=== PATIENT | male | born 1960 | race Caucasian/White ===

== ENCOUNTER 2016-04-27 06:37 | Day surgery (SDC) | payer OTHER ==
[~2016-04-27] VITALS: Ht 165.1 cm; Wt 63.5 kg
[~2016-04-27 06:37] MED LIST: GABA-526 PO; METF-382 PO
[2016-04-27 07:29] VITALS: Ht 165.1 cm; Wt 63.5 kg
[2016-04-27] MEDS ORDERED: GAS RELIEF PO (07:38)
[2016-04-27 07:59] VITALS: BP 116/72; PULSE 75; RESP 18
[2016-04-27 09:11] VITALS: BP 111/69; PULSE 83; RESP 18
--- NOTE | 2016-04-27 12:15 | GILP ---
DATE OF PROCEDURE: PROCEDURE: Esophagogastroduodenoscopy with biopsy. INDICATION: A 55-year-old male undergoing this procedure for a progressive dysphagia. The purpose is to evaluate upper GI tract and find out the cause of his dysphagia. The risk of the procedure, r elated and unrelated complications, anesthetic risks, sedative risks, alternatives discussed and inf ormed consent was obtained. DESCRIPTION OF PROCEDURE: The patient was brought to the GI lab, sedated with Versed 3 mg, fentanyl 75 mg. After optimum sedation, scope was passed with much ease into the esophagus which was grossl y within normal limits. No stricture, no ulcer or tumor identified. Z-line was normal at 40 cm. T here was no evidence of achalasia. Stomach mucosa revealed gastritis, more pronounced in the antrum . Duodenum, first and second part including ampulla, was within normal limits. Retroversion also w as normal. Scope was straightened out, and after obtaining 4 biopsies, removed with excellent patie nt tolerance. IMPRESSION: 1. Normal esophagus. 2. Normal Z-line. 3. Gastritis. 4. Normal duodenum and ampulla. PLAN: Review histopathology. Will do thyroid function for his dysphagia and also patient may need esophagogram to make sure there is no ring which we are missing or early achalasia. Dictated By: DOREEN COOPER/SHALONDA Conf#: [id number] DID#: [id number] CC: MALCOLM GREER MD;*EndCC*
[2016-04-27] MEDS ORDERED: MIDAZOLAM 1 MG/ML 2 ML INJ ONE ×2 (15:15)
[2016-04-27] MEDS ORDERED: FENTAnyl 50 MCG/ML VIAL ONE (15:16)
== END 2016-04-27 11:32 | disposition home or self-care (01) ==
LOC: GIL 06:37
PROVIDERS: ATTEND Internal Medicine Gastroenterology
DX: K29.50 Unspecified chronic gastritis without bleeding (principal); E11.9 Type 2 diabetes mellitus without complications
CPT/HCPCS: 43239; 82962; 88305; 88312; J2250; J3010; Z7610

== ENCOUNTER 2016-08-19 13:48 | Inpatient (IN) | payer OTHER ==
[~2016-08-19] VITALS: Ht 165.1 cm; Wt 61.9 kg
[~2016-08-19 13:48] MED LIST changes: +GAS RELIEF PO; -METF-382 PO; +METF500T4 PO
[2016-08-19] MEDS ORDERED: ONDANSETRON 4 MG INJ IV STA (16:49)
[2016-08-19] MEDS ORDERED: SOD CHLORIDE 0.9% 1,000 ML IV STA ×3 (16:49→20:25)
[2016-08-19] MEDS ORDERED: morphine 4 MG/ML VIAL IV STA (16:49)
--- NOTE | 2016-08-19 17:00 | ERA ---
ER Documentation Chief Complaint Date/Time DATE: 08/19/16 TIME: 16:57 Chief Complaint JAUNDICE/ABD PAIN/N/V/WEAKNESS/LOST OF APPETITE/WT LOST 8LBS IN 1 MNTH HPI This is a very pleasant 55-year-old male that presents to the emergency department complaining of 2 months of persistent and worsening jaundice. The patient indicates he had a remote history of ethanol abuse but has been abstinent from alcohol for over one year. He indicates he has been seen and evaluated for the jaundice with blood work, upper endoscopy and was currently awaiting further test. However he presents to the emergency department today as he indicates he has had lower abdominal pain over the past 4 days that has progressively worsened. The pain does not radiate to the back. He states it is a persistent sharp shooting pain in the left and the right lower quadrant. He denies any frequency urgency or dysuria. He has had no hemoptysis hematemesis but does state he has had melanotic stools for the past 2 months. He had no fevers or shaking or chills. He indicates he said a significant amount of weight loss of roughly 8 pounds in 1 month. He is unable to tolerate oral intake as he has no appetite. He denies any recent travel or prolonged immobilization. He has no shortness of breath at rest or exertion. ROS All systems reviewed and are negative except as per history of present illness. Medications Home Meds Reported Medications Polyethylene Glycol* (Miralax*) 17 Gm Powd.pack, 17 GM PO DAILY, #30 PACKET 08/19/16 Tramadol HCl (Tramadol HCl) 50 Mg Tablet, 50 MG PO TID for PAIN, #60 TAB 08/19/16 Meloxicam* (Meloxicam*) 7.5 Mg Tablet, 7.5 MG PO DAILY, #30 TAB 08/19/16 Ibuprofen* (Ibuprofen*) 600 Mg Tablet, 600 MG PO BID, TAB 08/19/16 Omeprazole* (Omeprazole*) 20 Mg Capsule.dr, 20 MG PO DAILY, #30 CAP 08/19/16 [Gas Relief] No Conflict Check, PO DAILY for DISTENSION/GAS/BLOATING 04/27/16 Metformin Hcl* (Metformin Hcl*) 500 Mg Tablet, 500 MG PO WITH BREAKFAST, TAB 02/24/14 Gabapentin* (Gabapentin*) 600 Mg Tablet, 600 MG PO TID, TAB 02/24/14 Allergies Allergies: Coded Allergies: No Known Allergies (Unverified Allergy, Unknown, 04/27/16) PMhx/Soc History of Surgery: Yes (HERNIA) Anesthesia Reaction: No Hx Neurological Disorder: Yes (DIABETIC NEUROPATHY BUE/BLE) Hx Respiratory Disorders: No Hx Cardiac Disorders: No Hx Psychiatric Problems: No Hx Miscellaneous Medical Probl: No Hx Alcohol Use: Yes (OCCASIONALLY) Hx Substance Use: No Hx Tobacco Use: No Smoking Status: Never smoker Physical Exam Vitals Vital Signs Date Time Temp Pulse Resp B/P Pulse Ox O2 Delivery O2 Flow Rate FiO2 08/19/16 18:24 Nasal Cannula 2 08/19/16 17:35 98.1 80 18 110/68 99 Room Air 08/19/16 15:35 98.1 80 18 101/65 99 Room Air 08/19/16 13:58 97.8 96 22 89/60 98 Physical Exam Constitutional:Well-developed. Well-nourished. HEENT:Normocephalic. Atraumatic.Pupils were equal round reactive to light. Moist mucous membranes.No tonsillar exudates. Sclerae icterus. Neck: No nuchal rigidity. No lymphadenopathy. No posterior cervical spine tenderness or step-offs. Respiratory: Not using accessory muscles of respiration.Lungs were clear to auscultation bilaterally. No rhonchi. No rales. No wheezing. Cardiovascular: Regular rate regular rhythm.No murmurs. No rubs were appreciated.S1, S2 normal. Distal pulses are palpable 2+ bilaterally. GI: Abdomen was soft. Hepatomegaly. Bilateral tenderness in the left and right lower quadrant. Non Distended. No pulsatile abdominal masses or bruits. No rebound. No guarding. Bowel sounds were present and normal. Muscle skeletal: Full range of motion of both the upper and lower extremities bilaterally.Normal muscle tone.No assymetrical calf tenderness or swelling. Skin: Jaundice. No petechia, no purpura. No lesions on the palms or the soles of the feet. No maculopapular rash. NEURO: Patient was alert, awake, orientated x3.No facial droop. Gait observed and normal with no ataxia.Speech had regular rate and rhythm. No focal neurological deficits. Result Diagram: 08/19/16 1700 08/19/16 1700 Results 24 hrs Laboratory Tests Test 08/19/16 17:00 08/19/16 17:15 08/19/16 18:50 White Blood Count 5.310^3/ul Red Blood Count 4.6010^6/ul Hemoglobin 16.2g/dl Hematocrit 43.8% Mean Corpuscular Volume 95.2fl Mean Corpuscular Hemoglobin 35.2pg Mean Corpuscular Hemoglobin Concent 37.0g/dl Red Cell Distribution Width 17.2% Platelet Count 5910^3/UL Mean Platelet Volume 11.5fl Neutrophils % 81.0% Lymphocytes % 12.0% Monocytes % 7.0% Neutrophils # 4.310^3/ul Lymphocytes # 0.610^3/ul Monocytes # 0.410^3/ul Platelet Estimate PLT APPEAR Sodium Level 137mmol/L Potassium Level 4.4mmol/L Chloride Level 99mmol/L Carbon Dioxide Level 23mmol/L Anion Gap 19 Blood Urea Nitrogen 17mg/dl Creatinine 0.96mg/dl Glucose Level 208mg/dl Calcium Level 9.0mg/dl Total Bilirubin 19.0mg/dl Direct Bilirubin 13.70mg/dl Indirect Bilirubin 5.3mg/dl Aspartate Amino Transf (AST/SGOT) 671IU/L Alanine Aminotransferase (ALT/SGPT) 686IU/L Alkaline Phosphatase 233IU/L Troponin I < 0.012ng/ml Total Protein 7.5g/dl Albumin 3.3g/dl Globulin 4.20g/dl Albumin/Globulin Ratio 0.78 Amylase Level 63U/L Lipase 193U/L Prothrombin Time 31.8Sec Prothrombin Time Ratio 2.5 INR International Normalized Ratio 3.03 Activated Partial Thromboplast Time 42.8Sec Urine Color JONE Urine Clarity SLIGHTLY CLOUDY Urine pH 6.0 Urine Specific Derwent 1.043 Urine Ketones NEGATIVEmg/dL Urine Nitrite NEGATIVEmg/dL Urine Bilirubin 2+mg/dL Urine Urobilinogen 2+mg/dL Urine Leukocyte Esterase NEGATIVELeu/ul Urine Microscopic RBC 0/HPF Urine Microscopic WBC 6/HPF Urine Mucus FEW/HPF Urine Hemoglobin NEGATIVEmg/dL Urine Glucose 2+mg/dL Urine Total Protein NEGATIVEmg/dl Current Medications Medications (Trade) Dose Ordered Sig/Pillo Route PRN Reason Start Time Stop Time Status Last Admin Dose Admin Sodium Chloride (NS) 1,000 ml @ 1,000 mls/hr Q1H STAT IV 08/19/16 16:49 7/15/17 17:48 DC 08/19/16 17:37 Morphine Sulfate (morphine) 4 mg ONCE STAT IV 08/19/16 16:49 08/19/16 16:52 DC 08/19/16 17:36 Ondansetron HCl (Zofran Inj) 4 mg ONCE STAT IV 08/19/16 16:49 08/19/16 16:52 DC 08/19/16 17:37 IV Flush 10 ml 10 ml STK-MED ONCE .ROUTE 08/19/16 17:34 08/19/16 17:35 DC 08/19/16 17:49 Sodium Chloride (NS) 100 ml @ ud STK-MED ONCE .ROUTE 08/19/16 17:34 08/19/16 17:35 DC 08/19/16 17:49 Iohexol 150 ml 150 ml STK-MED ONCE .ROUTE 08/19/16 17:34 08/19/16 17:35 DC 08/19/16 17:50 Sodium Chloride 1,000 ml @ 1,000 mls/hr Q1H STAT IV 08/19/16 19:36 08/19/16 20:35 DC 08/19/16 20:38 Sodium Chloride (NS) 1,000 ml @ 1,000 mls/hr Q1H STAT IV 08/19/16 20:25 08/19/16 21:24 DC 08/19/16 21:17 Procedures/MDM This patient presented to the emergency department with abdominal pain and was seen and evaluated by myself. My differential diagnosis included but was not limited to abdominal aortic aneurysm, appendicitis, pancreatitis, perforated peptic ulcer, perforated viscus, Boerhaaves syndrome or visceral pain such as diverticulitis, DKA, esophagitis, hepatitis or bowel obstruction. The patient was placed on a patient monitor, continuous pulse oximetry, and IV access was established by nursing staff. Patient was hypotensive and was given a liter bolus of 0 point and normal saline. For analgesic control the patient was given intravenous morphine and Zofran. I obtained a CT scan of the patient's abdomen which indicated the followin. Cirrhotic liver. 2. Splenomegaly. 3. Portal hypertension with varices in the upper abdomen. 4. Atherosclerosis. 5. Portal colopathy. 6. Moderate ascites. 7. Degenerative changes of the lower lumbar spine. As obtained an ultrasound the gallbladder which showed no common bile duct dilatation. 1 view chest radiograph showed no evidence of infiltrates pneumothorax or pleural effusion. The patient had hyperglycemia without ketosis and was given IV fluids. The patient had transaminitis, and elevation of his direct and indirect bilirubin with an elevation of AST. I do not have an exact etiology into the patient's hyperbilirubinemia but there was concern for portal hypertension and cirrhosis. The patient also had a urinary tract infection and blood cultures and urine cultures were obtained. Given his multiple comorbidities he will be admitted for IV antibiotics and received IV ceftriaxone in the emergency department. He will be admitted under the care of Dr. Mckoy in serious condition with an anticipated stay of greater than 2 midnights to the medical surgical floor Departure Diagnosis: Primary Impression: Urinary tract infection Qualified Code: N39.0 - Urinary tract infection without hematuria, site unspecified Additional Impressions: Hyperbilirubinemia Transaminitis Portal hypertension Condition: Serious ARELY GUERRA Aug 19, 2016 17:00
[2016-08-19 17:03] LABS: ADD SCAN DIFF NO
[2016-08-19 17:14] LABS: ABNORMAL IP MESSAGE 1; HEMATOCRIT 43.8 % (42.0-52.0); HEMOGLOBIN 16.2 g/dl (14.0-18.0); MEAN CORPUSCULAR HEMOGLOBIN 35.2 pg (29.0-33.0); MEAN CORPUSCULAR VOLUME 95.2 fl (82.0-101.0); MEAN PLATELET VOLUME 11.5 fl (7.4-10.4); PLATELET COUNT 59 10^3/UL (140-415); RED CELL DISTRIBUTION WIDTH 17.2 % (11.5-14.5); WHITE BLOOD COUNT 5.3 10^3/ul (4.8-10.8)
[2016-08-19 17:22] LABS: ALANINE AMINOTRANSFERASE 686 IU/L (13-69); ALBUMIN 3.3 g/dl (3.3-4.9); ALBUMIN/GLOBULIN RATIO 0.78; ALKALINE PHOSPHATASE 233 IU/L (42-121); AMYLASE 63 U/L (11-123); ANION GAP 19 (8-16); ASPARTATE AMINO TRANSFERASE 671 IU/L (15-46); BILIRUBIN,INDIRECT 5.3 mg/dl (0-1.1); BLOOD UREA NITROGEN 17 mg/dl (7-20); CARBON DIOXIDE 23 mmol/L (21-31); CHLORIDE 99 mmol/L (97-110); CREATININE 0.96 mg/dl (0.61-1.24); GLUCOSE 208 mg/dl (70-220); POTASSIUM 4.4 mmol/L (3.5-5.1); SODIUM 137 mmol/L (135-144); TOTAL PROTEIN 7.5 g/dl (6.1-8.1)
[2016-08-19] MEDS ORDERED: SOD CHLORIDE 0.9% 100 ML ONE (17:34)
[2016-08-19] MEDS ORDERED: IOHEXOL 300MG/ML 150 ML BTL ONE (17:34)
[2016-08-19 17:35] VITALS: TEMP 98.1
[2016-08-19 17:41] LABS: TROPONIN-I < 0.012 ng/ml (0.00-0.12)
[2016-08-19 17:43] LABS: INR 3.03; PROTIME 31.8 Sec (12.2-14.2); PT RATIO 2.5
[2016-08-19 17:44] LABS: PARTIAL THROMBOPLASTIN TIME 42.8 Sec (25.0-35.0)
[2016-08-19 17:46] LABS: LYMPHOCYTES # 0.6 10^3/ul (0.8-2.9); MONOCYTE # 0.4 10^3/ul (0.3-0.9); NEUTROPHIL # 4.3 10^3/ul (1.6-7.5)
[2016-08-19 17:48] LABS: PLATELET ESTIMATE PLT APPEAR
--- NOTE | 2016-08-19 18:25 | RADRPT ---
PROCEDURE: CT Abdomen and Pelvis with contrast. CLINICAL INDICATION: Abdomen and pelvis pain. Jaundice. TECHNIQUE: CT scan of the abdomen and pelvis with contrast was performed. The patient was scanned following the uncomplicated intravenous administration of 100 cc of Omnipaque-300. Coronal and sag ittal reformatted images were obtained from the axial source images. Images were reviewed on a high- resolution PACS workstation. Total exam DLP is 309.66 mGy-cm. CTDIvol is 5.17 mGy. One or more of the following dose reduction techniques were used: Automated exposure control, adjustment of the mA and/or kV according to patient size, use of iterative reconstruction technique. COMPARISON: None. FINDINGS: The lung bases are normal. There is no pleural effusion. The liver is small and has a nodular surface consistent with cirrhosis. There is no focal hepatic l esion. The gallbladder is distended but otherwise unremarkable. The spleen is borderline enlarged. There is no focal splenic lesion. Multiple dilated veins are pre sent in the upper abdomen consistent with varices. Both adrenals are normal with no enlargement or mass. The pancreas is unremarkable with no mass or evidence of pancreatitis. Both kidneys demonstrate normal contrast enhancement. There is no renal mass or hydronephrosis. The abdominal aorta is not dilated. There is calcification in the aorta consistent with atheroscler osis. There is no retroperitoneal lymphadenopathy or mass. There is no pelvic lymphadenopathy or mass. The bladder and distal ureters are normal. The periappendiceal region is unremarkable with no evidence of appendicitis. The appendix is well s een and appears normal. There is diffuse thickening of the wall of the colon consistent with portal colopathy. The bowel an d mesentery are otherwise normal. There is moderate ascites. There is no free air. There are degenerative changes of the lower lumbar spine. There is no fracture or lytic lesion. IMPRESSION: 1. Cirrhotic liver. 2. Splenomegaly. 3. Portal hypertension with varices in the upper abdomen. 4. Atherosclerosis. 5. Portal colopathy. 6. Moderate ascites. 7. Degenerative changes of the lower lumbar spine. RPTAT: QQ .Jefferson Solis MD, MD Date Time Electronically viewed and signed by .Jefferson Solis MD, on 08/19/2016 18:24 .R/
--- NOTE | 2016-08-19 18:26 | RADRPT ---
PROCEDURE: XR Chest. CLINICAL INDICATION: Abdominal pain. TECHNIQUE: Single frontal view. COMPARISON: 07/28/2015. FINDINGS: The lungs are clear. The heart size is normal. There is no pleural effusion. There is no pneumothorax. IMPRESSION: 1. Normal chest radiograph. RPTAT: QQ .Jefferson Solis MD, MD Date Time Electronically viewed and signed by .Jefferson Solis MD, on 08/19/2016 18:25 .R/
--- NOTE | 2016-08-19 18:44 | RADRPT ---
PROCEDURE: Right upper quadrant abdominal ultrasound. CLINICAL INDICATION: Abdominal pain, jaundice TECHNIQUE: Sandoval scale and color doppler ultrasound images of the right upper quadrant. COMPARISON: CT abdomen pelvis 08/19/2016 FINDINGS: Pancreas: Visualized portions appear of normal echogenicity, no focal lesions. Liver: Morphology: Normal in size measuring 14.3 cm. Mild contour nodularity. Echogenicity: Coarsened. Focal lesions: None. Main portal vein: Patent with hepatopetal flow. Biliary System: Normal appearing gallbladder wall. No gallstones seen. No intrahepatic biliary dilatation. Common bile duct measures 4.0 mm in maximal dimension. Kidneys: Right 9.6 cm in length. Right renal cortical thickness is preserved. Normal echogenicity. No hydronephrosis. No renal calculi. No focal lesions. Mild ascites is present. IMPRESSION: Normal gallbladder without gallstones. Normal caliber intrahepatic and extrahepatic biliary system. Coarsened appearance of the liver compatible with cirrhosis RPTAT: AADD .Otis Quinones MD, MD Date Time Electronically viewed and signed by .Otis Quinones MD, on 08/19/2016 18:43 .B/
[2016-08-19 19:25] LABS: ADD UMIC NO; UR ASCORBIC ACID NEGATIVE (NEGATIVE); UR BILIRUBIN (Dip) 2+ mg/dL (NEGATIVE); UR BLOOD (Dip) NEGATIVE (NEGATIVE); UR CLARITY SLIGHTLY CLOUDY (CLEAR); UR COLOR AMBER (YELLOW); UR GLUCOSE (Dip) 2+ mg/dL (NEGATIVE); UR KETONES (Dip) NEGATIVE (NEGATIVE); UR LEUKOCYTE ESTERASE (Dip) NEGATIVE Leu/ul (NEGATIVE); UR MUCUS FEW /HPF (NONE SEEN); UR NITRITE (Dip) NEGATIVE (NEGATIVE); UR RBC 0 /HPF (0-5); UR SPECIFIC GRAVITY (Dip) 1.043 (1.003-1.030); UR TOTAL PROTEIN (Dip) NEGATIVE (NEGATIVE); UR UROBILINOGEN (Dip) 2+ mg/dL (NEGATIVE)
[2016-08-19] MEDS ORDERED: CEFTRIAXONE 1 GM/50 ML (PMX) 50 ML IVPB ONE (20:30)
[2016-08-19] MEDS ORDERED: ONDANSETRON 4 MG INJ IV PRN (20:30)
[2016-08-19 22:00] VITALS: BP 150/82; PULSE 73; RESP 18
[2016-08-19 22:24] VITALS: Ht 165.1 cm; Wt 61.9 kg
[2016-08-19] MEDS ORDERED: IBUP-1542 PO (23:17)
[2016-08-19] MEDS ORDERED: POLY17PO6 PO (23:17)
[2016-08-19] MEDS ORDERED: MELO-109 PO (23:17)
[2016-08-19] MEDS ORDERED: OMEP20CA16 PO (23:17)
[2016-08-19] MEDS ORDERED: TRAM50TA2 PO (23:17)
[2016-08-19] MEDS: DEXTROSE 5%-0.45% NACL 1,000 ML IV SCH (23:50)
[2016-08-20] MEDS ORDERED: INSULIN ASPART [NOVOLOG] 3 ML PEN SC ONE
[2016-08-20] MEDS: ACCU-CHEK XX SCH (02:26)
[2016-08-20 02:44] VITALS: BP 132/74; RESP 18
[2016-08-20] MEDS: PANTOPRAZOLE 40 MG INJ IV SCH (05:08)
[2016-08-20 05:37] LABS: ADD SCAN DIFF NO
[2016-08-20 06:03] LABS: ALBUMIN 2.3 g/dl (3.3-4.9); ALBUMIN/GLOBULIN RATIO 0.67; BILIRUBIN,DIRECT 11.4 mg/dl (0.00-0.20); BILIRUBIN,INDIRECT 4.4 mg/dl (0-1.1); BILIRUBIN,TOTAL 15.8 mg/dl (0.2-1.3); CALCIUM 7.9 mg/dl (8.4-10.2); CREATININE 0.74 mg/dl (0.61-1.24); POTASSIUM 4.1 mmol/L (3.5-5.1); TOTAL PROTEIN 5.7 g/dl (6.1-8.1)
[2016-08-20] MEDS: traMADol 50 MG TAB PO PRN ×2 (06:55→20:16)
[2016-08-20 07:14] LABS: ABNORMAL IP MESSAGE 1; BASOPHILS % 0.8 % (0.0-2.0); EOSINOPHILS # 0.1 10^3/ul (0.0-0.5); EOSINOPHILS % 2.3 % (0.0-7.0); HEMOGLOBIN 12.8 g/dl (14.0-18.0); LYMPHOCYTES # 0.7 10^3/ul (0.8-2.9); LYMPHOCYTES % 26.1 % (15.0-51.0); MEAN CORPUSCULAR HEMOGLOBIN 34.9 pg (29.0-33.0); MEAN CORPUSCULAR VOLUME 95.4 fl (82.0-101.0); MEAN PLATELET VOLUME 12.7 fl (7.4-10.4); MONOCYTE # 0.3 10^3/ul (0.3-0.9); MONOCYTES % 13.2 % (0.0-11.0); NEUTROPHIL # 1.5 10^3/ul (1.6-7.5); NEUTROPHILS % 57.2 % (39.0-77.0); RED BLOOD COUNT 3.67 10^6/ul (4.70-6.10); RED CELL DISTRIBUTION WIDTH 17.1 % (11.5-14.5); WHITE BLOOD COUNT 2.6 10^3/ul (4.8-10.8)
[2016-08-20 07:16] LABS: MEAN CORPUSCULAR HGB CONC 36.6 g/dl (32.0-37.0); PLATELET COUNT 50 10^3/UL (140-415)
[2016-08-20] MEDS: INSULIN ASPART [NOVOLOG] 3 ML PEN SC SCH ×4 (08:06→20:14)
[2016-08-20 08:14] VITALS: BP 111/66; RESP 18
[2016-08-20] MEDS: POLYETHYLENE GLYCOL 17 GM PACKET PO SCH (09:41)
[2016-08-20 14:48] VITALS: BP 132/71; RESP 20
[2016-08-20] MEDS ORDERED: DEXTROSE 50% 50 ML SYRINGE IV PRN ×2 (18:00)
[2016-08-20] MEDS ORDERED: GLUCOSE GEL 15 GRAM TUBE PO PRN ×2 (18:00)
[2016-08-20] MEDS ORDERED: GLUCAGON 1 MG INJ IM PRN (18:00)
[2016-08-20] MEDS ORDERED: GLUCOSE GEL 15 GRAM TUBE BUCCAL PRN (18:00)
--- NOTE | 2016-08-20 18:57 | QN ---
Documentation Comment [id number] NAVI VENTURA MD Aug 20, 2016 18:56
[2016-08-20] MEDS: INSULIN GLARGINE [LANtus] 3 ML PEN SC SCH (20:13)
[2016-08-20 20:19] LABS: HAAIG REFLEX REFLEX FILED
[2016-08-20 20:41] LABS: HDL CHOLESTEROL 14 mg/dl (28-71); TRIGLYCERIDES 60 mg/dl (0-149)
[2016-08-20 20:42] LABS: CHOLESTEROL < 50 mg/dl (100-200)
[2016-08-20 20:54] VITALS: BP 142/81; RESP 16
[2016-08-20] MEDS: CEFTRIAXONE 1 GM/50 ML (PMX) 50 ML IVPB SCH (21:03)
[2016-08-20] MEDS: DEXTROSE 5%-0.45% NACL 1,000 ML IV SCH (21:04)
[2016-08-20 21:49] LABS: HEPATITIS B CORE ANTIBODY NEGATIVE (NEGATIVE)
[2016-08-21] MEDS: ACCU-CHEK XX SCH (01:56)
[2016-08-21 03:33] VITALS: BP 133/78; RESP 16
[2016-08-21] MEDS: PANTOPRAZOLE 40 MG INJ IV SCH (05:08)
[2016-08-21 06:04] LABS: ADD SCAN DIFF NO
[2016-08-21 06:09] LABS: ABNORMAL IP MESSAGE 1; BASOPHILS % 0.7 % (0.0-2.0); EOSINOPHILS % 1.1 % (0.0-7.0); HEMATOCRIT 35.2 % (42.0-52.0); HEMOGLOBIN 12.9 g/dl (14.0-18.0); LYMPHOCYTES # 0.7 10^3/ul (0.8-2.9); LYMPHOCYTES % 24.2 % (15.0-51.0); MEAN CORPUSCULAR HEMOGLOBIN 34.6 pg (29.0-33.0); MEAN CORPUSCULAR HGB CONC 36.6 g/dl (32.0-37.0); MEAN CORPUSCULAR VOLUME 94.4 fl (82.0-101.0); MEAN PLATELET VOLUME 12.3 fl (7.4-10.4); MONOCYTE # 0.4 10^3/ul (0.3-0.9); MONOCYTES % 13.4 % (0.0-11.0); NEUTROPHIL # 1.7 10^3/ul (1.6-7.5); NEUTROPHILS % 60.2 % (39.0-77.0); PLATELET COUNT 49 10^3/UL (140-415); RED BLOOD COUNT 3.73 10^6/ul (4.70-6.10); RED CELL DISTRIBUTION WIDTH 16.9 % (11.5-14.5); WHITE BLOOD COUNT 2.8 10^3/ul (4.8-10.8)
[2016-08-21 06:40] LABS: ALBUMIN 2.3 g/dl (3.3-4.9); ALBUMIN/GLOBULIN RATIO 0.67; BILIRUBIN,DIRECT 13.3 mg/dl (0.00-0.20); BILIRUBIN,INDIRECT 4.9 mg/dl (0-1.1); BILIRUBIN,TOTAL 18.2 mg/dl (0.2-1.3); CALCIUM 7.9 mg/dl (8.4-10.2); CREATININE 0.76 mg/dl (0.61-1.24); POTASSIUM 3.8 mmol/L (3.5-5.1); TOTAL PROTEIN 5.7 g/dl (6.1-8.1)
[2016-08-21] MEDS: INSULIN ASPART [NOVOLOG] 3 ML PEN SC SCH ×4 (07:46→20:38)
[2016-08-21 08:11] VITALS: BP 111/64; RESP 16
[2016-08-21] MEDS: POLYETHYLENE GLYCOL 17 GM PACKET PO SCH (08:18)
[2016-08-21 10:03] LABS: PLATELET ESTIMATE PLT APPEAR DECREASED
--- NOTE | 2016-08-21 15:56 | RADRPT ---
PROCEDURE: MRCP without contrast. CLINICAL INDICATION: Elevated LFTs. TECHNIQUE: Routine MRCP was obtained without the administration of intravenous contrast. COMPARISON: Ultrasound, 08/19/2016. FINDINGS: Gallbladder is unremarkable. No intra- or extra-hepatic biliary dilatation is identified. There is no filling defect or choledocholithiasis. Shrunken nodular liver, consistent with cirrhotic change. There is at least moderate abdominopelvic ascites. IMPRESSION: Shrunken nodular cirrhotic liver with moderate abdominopelvic ascites. No evidence of biliary dilatation, filling defect, choledocholithiasis, or biliary obstruction. RPTAT: EE .Jared Tripp MD, MD Date Time Electronically viewed and signed by .Jared Tripp MD, on 08/21/2016 16:01 .C/
--- NOTE | 2016-08-21 18:46 | CONS ---
Date/Time of Note Date/Time of Note DATE: 08/21/16 TIME: 18:44 Assessment/Plan Assessment/Plan Additional Assessment/Plan 1. Cirrhosis of liver 2. Portal hypertension 3. Decompensated cirrhosis 4. Ascites 5. Abdominal pain and nausea vomiting. Plan Continue with PPI and Reglan Alpha-fetoprotein Consultation Date/Type/Reason Admit Date/Time Aug 19, 2016 at 20:29 Hx of Present Illness 55-year-old male with a history of cirrhosis of liver admitted the hospital for abdominal pain nausea vomiting. This has been going on for last few days. Patient was unable to keep the food down. Today she was able to tolerate liquid diet. He had a CAT scan MRI done which showed nodular liver with ascites. His bilirubin is high. GI consult was called in for abdominal pain and abnormal liver function tests. Past Medical History Medical History: diabetes Family History Significant Family History: no pertinent family hx Social History Alcohol Use: occasionally Smoking Status: Former smoker Drug Use: none Exam/Review of Systems Vital Signs Vitals Vital Signs Date Time Temp Pulse Resp B/P Pulse Ox O2 Delivery O2 Flow Rate FiO2 08/21/16 08:11 97.6 72 16 111/64 96 08/19/16 22:00 Room Air 08/19/16 18:24 2 Intake and Output 08/20/16 08/20/16 08/21/16 15:00 23:00 07:00 Intake Total 1640 ml 520 ml Output Total 400 ml Balance 1640 ml 120 ml Exam Constitutional: alert, oriented, well developed Psych: nl mood/affect, no complaints Head: atraumatic, normocephalic Eyes: EOMI, PERRL, nl conjunctiva, nl lids, nl sclera ENMT: nl external ears & nose, nl lips & teeth, nl nasal mucosa & septum Neck: non-tender, supple Respiratory: clear to auscultation, normal air movement Cardiovascular: nl pulses, regular rate and rhythm Gastrointestinal: nl liver, spleen, non-tender, soft Musculoskeletal: nl extremities to inspection, nl gait and stance Extremities: normal pulses 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, nl mental status, nl speech, nl strength Skin: nl turgor, No rash or lesions Lymph: nl lymph nodes Results Result Diagram: 08/21/16 0458 08/21/16 0458 Results 24 hrs Laboratory Tests Test 08/20/16 20:10 08/20/16 20:15 08/21/16 01:55 08/21/16 04:58 Bedside Glucose 199 151 Triglycerides Level 60 Cholesterol Level < 50 L LDL Cholesterol, Calculated HDL Cholesterol 14 L Cholesterol/HDL Ratio Hepatitis B Surface Antigen NEGATIVE Hepatitis B Core Total Antibody NEGATIVE Hepatitis C Antibody NEGATIVE White Blood Count 2.8 L Red Blood Count 3.73 L Hemoglobin 12.9 L Hematocrit 35.2 L Mean Corpuscular Volume 94.4 Mean Corpuscular Hemoglobin 34.6 H Mean Corpuscular Hemoglobin Concent 36.6 Red Cell Distribution Width 16.9 H Platelet Count 49 L Mean Platelet Volume 12.3 H Neutrophils % 60.2 Lymphocytes % 24.2 Monocytes % 13.4 H Eosinophils % 1.1 Basophils % 0.7 Nucleated Red Blood Cells % 0.0 Neutrophils # 1.7 Lymphocytes # 0.7 L Monocytes # 0.4 Eosinophils # 0.0 Basophils # 0.0 Nucleated Red Blood Cells # 0.0 Differential Comment AUTO w/SCAN Platelet Estimate PLT APPEAR DECREASED Sodium Level 135 Potassium Level 3.8 Chloride Level 105 Carbon Dioxide Level 23 Anion Gap 11 Blood Urea Nitrogen 11 Creatinine 0.76 Glucose Level 134 # Calcium Level 7.9 L Total Bilirubin 18.2 H Direct Bilirubin 13.30 H Indirect Bilirubin 4.9 H Aspartate Amino Transf (AST/SGOT) 598 H Alanine Aminotransferase (ALT/SGPT) 531 H Alkaline Phosphatase 143 H Total Protein 5.7 L Albumin 2.3 L Globulin 3.40 H Albumin/Globulin Ratio 0.67 Test 08/21/16 07:45 08/21/16 12:13 08/21/16 17:14 Bedside Glucose 116 112 129 Medications Medications Current Medications Polyethylene Glycol (Miralax) 17 gm DAILY PO Last administered on 08/20/16 09: 41; Admin Dose 17 GM; Start 08/20/16 at 09:00 Tramadol HCl 50 mg 50 mg BID PRN PO PAIN Last administered on 08/20/16 20:16; Admin Dose 50 MG; Start 08/19/16 at 23:30 Ceftriaxone Sodium (Rocephin) 50 ml @ 100 mls/hr Q24H IVPB Last administered on 08/20/16 21:03; Admin Dose 100 MLS/HR; Start 08/20/16 at 22:00 Pantoprazole (Protonix Iv) 40 mg DAILY@06 IV Last administered on 08/21/16 05: 08; Admin Dose 40 MG; Start 08/20/16 at 06:00 Acetaminophen 650 mg 650 mg Q6H PRN PO PAIN AND OR ELEVATED TEMP; Start at 23:30 Dextrose/Sodium Chloride (D5-1/2ns) 1,000 ml @ 40 mls/hr Q24H IV Last administered on 08/20/16 21:04; Admin Dose 40 MLS/HR; Start 08/19/16 at 23:30 Diagnostic Test (Pha) (Accu-Chek) 1 ea 02 XX Last administered on 08/21/16 01: 56; Admin Dose 1 EA; Start 08/20/16 at 02:00 Insulin Glargine (Lantus) 15 unit DAILY@20 SC Last administered on 08/20/16 20 :13; Admin Dose 15 UNIT; Start 08/20/16 at 20:00 Miscellaneous Information 1 ea NOTE XX ; Start 08/20/16 at 18:00 Glucose (Glutose) 15 gm Q15M PRN PO DECREASED GLUCOSE; Start 08/20/16 at 18:00 Glucose (Glutose) 22.5 gm Q15M PRN PO DECREASED GLUCOSE; Start 08/20/16 at 18: 00 Dextrose (D50w Syringe) 25 ml Q15M PRN IV DECREASED GLUCOSE; Start 08/20/16 at 18:00 Dextrose (D50w Syringe) 50 ml Q15M PRN IV DECREASED GLUCOSE; Start 08/20/16 at 18:00 Glucagon (Glucagen) 1 mg Q15M PRN IM DECREASED GLUCOSE; Start 08/20/16 at 18:00 Glucose (Glutose) 15 gm Q15M PRN BUCCAL DECREASED GLUCOSE; Start 08/20/16 at 18 :00 DOREEN WILSON MD Aug 21, 2016 18:46
[2016-08-21] MEDS: INSULIN GLARGINE [LANtus] 3 ML PEN SC SCH (20:39)
[2016-08-21 21:30] VITALS: BP 136/80; RESP 19
--- NOTE | 2016-08-21 21:40 | PN ---
Date/Time of Note Date/Time of Note DATE: 08/21/16 TIME: 21:39 Assessment/Plan VTE Prophylaxis VTE Prophylaxis Intervention: other Lines/Catheters IV [facility]from [facility]): Peripheral IV Urinary Cath still in place: No Assessment/Plan Chief Complaint/Hosp Course LIVER FAILURE HX EGD PLAN PER GI Problems: Subjective 24 Hr Interval Summary Respiratory: no complaints Cardiovascular: no complaints Exam/Review of Systems Vital Signs Vitals Vital Signs Date Time Temp Pulse Resp B/P Pulse Ox O2 Delivery O2 Flow Rate FiO2 08/21/16 08:11 97.6 72 16 111/64 96 08/19/16 22:00 Room Air 08/19/16 18:24 2 Intake and Output 08/20/16 08/20/16 08/21/16 15:00 23:00 07:00 Intake Total 1640 ml 520 ml Output Total 400 ml Balance 1640 ml 120 ml Exam Neck: supple Respiratory: clear to auscultation Cardiovascular: regular rate and rhythm Gastrointestinal: bowel sounds (+), soft Musculoskeletal: nl extremities to inspection Results Result Diagram: 08/21/16 0458 08/21/16 0458 Results 24 hrs Laboratory Tests Test 08/21/16 01:55 08/21/16 04:58 08/21/16 07:45 08/21/16 12:13 Bedside Glucose 151 116 112 White Blood Count 2.8 L Red Blood Count 3.73 L Hemoglobin 12.9 L Hematocrit 35.2 L Mean Corpuscular Volume 94.4 Mean Corpuscular Hemoglobin 34.6 H Mean Corpuscular Hemoglobin Concent 36.6 Red Cell Distribution Width 16.9 H Platelet Count 49 L Mean Platelet Volume 12.3 H Neutrophils % 60.2 Lymphocytes % 24.2 Monocytes % 13.4 H Eosinophils % 1.1 Basophils % 0.7 Nucleated Red Blood Cells % 0.0 Neutrophils # 1.7 Lymphocytes # 0.7 L Monocytes # 0.4 Eosinophils # 0.0 Basophils # 0.0 Nucleated Red Blood Cells # 0.0 Differential Comment AUTO w/SCAN Platelet Estimate PLT APPEAR DECREASED Sodium Level 135 Potassium Level 3.8 Chloride Level 105 Carbon Dioxide Level 23 Anion Gap 11 Blood Urea Nitrogen 11 Creatinine 0.76 Glucose Level 134 # Calcium Level 7.9 L Total Bilirubin 18.2 H Direct Bilirubin 13.30 H Indirect Bilirubin 4.9 H Aspartate Amino Transf (AST/SGOT) 598 H Alanine Aminotransferase (ALT/SGPT) 531 H Alkaline Phosphatase 143 H Total Protein 5.7 L Albumin 2.3 L Globulin 3.40 H Albumin/Globulin Ratio 0.67 Test 08/21/16 17:14 08/21/16 20:35 Bedside Glucose 129 182 Medications Medications Current Medications Polyethylene Glycol (Miralax) 17 gm DAILY PO Last administered on 08/20/16 09: 41; Admin Dose 17 GM; Start 08/20/16 at 09:00 Tramadol HCl 50 mg 50 mg BID PRN PO PAIN Last administered on 08/20/16 20:16; Admin Dose 50 MG; Start 08/19/16 at 23:30 Ceftriaxone Sodium (Rocephin) 50 ml @ 100 mls/hr Q24H IVPB Last administered on 08/20/16 21:03; Admin Dose 100 MLS/HR; Start 08/20/16 at 22:00 Pantoprazole (Protonix Iv) 40 mg DAILY@06 IV Last administered on 08/21/16 05: 08; Admin Dose 40 MG; Start 08/20/16 at 06:00 Acetaminophen 650 mg 650 mg Q6H PRN PO PAIN AND OR ELEVATED TEMP; Start at 23:30 Dextrose/Sodium Chloride (D5-1/2ns) 1,000 ml @ 40 mls/hr Q24H IV Last administered on 08/20/16 21:04; Admin Dose 40 MLS/HR; Start 08/19/16 at 23:30 Diagnostic Test (Pha) (Accu-Chek) 1 ea 02 XX Last administered on 08/21/16 01: 56; Admin Dose 1 EA; Start 08/20/16 at 02:00 Insulin Glargine (Lantus) 15 unit DAILY@20 SC Last administered on 08/21/16 20 :39; Admin Dose 15 UNIT; Start 08/20/16 at 20:00 Miscellaneous Information 1 ea NOTE XX ; Start 08/20/16 at 18:00 Glucose (Glutose) 15 gm Q15M PRN PO DECREASED GLUCOSE; Start 08/20/16 at 18:00 Glucose (Glutose) 22.5 gm Q15M PRN PO DECREASED GLUCOSE; Start 08/20/16 at 18: 00 Dextrose (D50w Syringe) 25 ml Q15M PRN IV DECREASED GLUCOSE; Start 08/20/16 at 18:00 Dextrose (D50w Syringe) 50 ml Q15M PRN IV DECREASED GLUCOSE; Start 08/20/16 at 18:00 Glucagon (Glucagen) 1 mg Q15M PRN IM DECREASED GLUCOSE; Start 08/20/16 at 18:00 Glucose (Glutose) 15 gm Q15M PRN BUCCAL DECREASED GLUCOSE; Start 08/20/16 at 18 :00 Metoclopramide HCl (Reglan) 5 mg Q6 IV ; Start 08/22/16 at 18:50 NAVI VENTURA MD Aug 21, 2016 21:40
[2016-08-21] MEDS: traMADol 50 MG TAB PO PRN (21:56)
[2016-08-21] MEDS: CEFTRIAXONE 1 GM/50 ML (PMX) 50 ML IVPB SCH (21:56)
[2016-08-21] MEDS: DEXTROSE 5%-0.45% NACL 1,000 ML IV SCH (23:30)
[2016-08-22] MEDS: ACCU-CHEK XX SCH (02:00)
[2016-08-22] MEDS: DEXTROSE 5%-0.45% NACL 1,000 ML IV SCH (02:08)
--- NOTE | 2016-08-22 03:50 | HP ---
DATE OF ADMISSION: 08/19/2016 HISTORY OF PRESENT ILLNESS: The patient with a history of diabetes mellitus, history of EGD in the past, noted to have a normal esophagus, normal Z-line, gastritis, normal duodenum and papilla. The patient has a history of anemia, history of liver failure per patient, was seen by PCP and sent here for further management, noted to have acute liver failure. The patient denies any abdominal pain, denies any nausea and vomiting on and off. No hematemesis or melena. Blood pressure 132/71. The patient has WBC 2.6, hematocrit 35, platelet count of 50,000. The patient has INR 3.30. The patient's glucose 245, ammonia 58. The patient has calcium 9, BUN of 19 and patient's AST is 671, ALT 686, alk phos 233, bilirubin 19, direct bilirubin 13. The patient is being admitted for further management. The patient had a chest x-ray done in the ER, normal chest radiograph. The patient has a cirrhotic liver, splenomegaly, portal hypertension with varices in the upper abdomen, atherosclerosis, positive colopathy, moderate ascites, degenerative changes of the lower lumbar spine. Gallbladder ultrasound shows _ 9.6 cm length, normal echogenicity, no renal calculi, no focal lesion. PAST MEDICAL HISTORY: Positive for diabetes mellitus. ALLERGIES: NEGATIVE. FAMILY HISTORY: Diabetes mellitus. SOCIAL HISTORY: etoh user_ user, stopped many years ago. MEDICATIONS: The patient is on gabapentin, ibuprofen, metformin, omeprazole, MiraLax, tramadol. REVIEW OF SYSTEMS: HEENT: Unremarkable. RESPIRATORY: Unremarkable. CARDIOVASCULAR: No chest pain. GASTROINTESTINAL: Abdominal pain. No nausea or vomiting at this point. EXTREMITIES: Unremarkable. NEUROLOGIC: Unremarkable. PHYSICAL EXAMINATION: GENERAL: The patient is a jaundiced, _ awake. VITAL SIGNS: Stable. HEENT: Atraumatic, normocephalic. Pupils equal and reactive to light. Pale conjunctivae. Icterus positive. NECK: Supple. No JVD. LUNGS: Clear. CARDIAC: S1, S2 normal. ABDOMEN: Distended with bowel sounds positive . EXTREMITIES: No cyanosis, clubbing or edema. IMPRESSION: 1. Liver failure. 2. Cirrhosis. 3. Diabetes mellitus. 4. The patient has significant neutropenia and anemia. PLAN: GI consultation. The patient will have a lipid panel and hepatitis panel. Electrolytes will be monitored. Further recommendations per Dr. Ballesteros. Dictated By: Xavier Mckoy MD /[email or web address]/ec /Document#: [id number] MTDD
[2016-08-22 03:58] VITALS: BP 107/71; RESP 18
[2016-08-22] MEDS: PANTOPRAZOLE 40 MG INJ IV SCH (05:52)
[2016-08-22 07:04] LABS: ALBUMIN/GLOBULIN RATIO 0.52; BILIRUBIN,DIRECT 14.9 mg/dl (0.00-0.20); BILIRUBIN,INDIRECT 4.9 mg/dl (0-1.1); BILIRUBIN,TOTAL 19.8 mg/dl (0.2-1.3); CALCIUM 8.2 mg/dl (8.4-10.2); CREATININE 0.79 mg/dl (0.61-1.24); POTASSIUM 3.6 mmol/L (3.5-5.1); TOTAL PROTEIN 5.8 g/dl (6.1-8.1)
[2016-08-22] MEDS: traMADol 50 MG TAB PO PRN ×2 (07:46→21:41)
[2016-08-22] MEDS: INSULIN ASPART [NOVOLOG] 3 ML PEN SC SCH ×4 (07:47→21:30)
[2016-08-22 08:16] VITALS: BP 120/73; RESP 18
[2016-08-22] MEDS: POLYETHYLENE GLYCOL 17 GM PACKET PO SCH (08:45)
[2016-08-22 15:00] VITALS: BP 111/65; RESP 18
--- NOTE | 2016-08-22 19:00 | CONS ---
Date/Time of Note Date/Time of Note DATE: 08/22/16 TIME: 18:59 Assessment/Plan Assessment/Plan Chief Complaint/Hosp Course 55-year-old male with a history of cirrhosis of liver admitted the hospital for abdominal pain nausea vomiting. This has been going on for last few days. Patient was unable to keep the food down. Today she was able to tolerate liquid diet. He had a CAT scan MRI done which showed nodular liver with ascites. His bilirubin is high. GI consult was called in for abdominal pain and abnormal liver function tests. Problems: Additional Assessment/Plan Additional Assessment/Plan 1. Cirrhosis of liver 2. Portal hypertension 3. Decompensated cirrhosis 4. Ascites 5. Abdominal pain and nausea vomiting. Plan Continue with PPI and Reglan Alpha-fetoprotein Patient should be referred to transplant center Consultation Date/Type/Reason Admit Date/Time Aug 19, 2016 at 20:29 Initial Consult Date 24 HR Interval Summary Constitutional: no complaints Exam/Review of Systems Vital Signs Vitals Vital Signs Date Time Temp Pulse Resp B/P Pulse Ox O2 Delivery O2 Flow Rate FiO2 08/22/16 15:00 97.3 80 18 111/65 98 08/19/16 22:00 Room Air 08/19/16 18:24 2 Intake and Output 08/21/16 08/21/16 08/22/16 15:00 23:00 07:00 Intake Total 530 ml 870 ml Balance 530 ml 870 ml Exam Constitutional: alert, oriented, well developed Psych: nl mood/affect, no complaints Head: atraumatic, normocephalic Eyes: EOMI, PERRL, nl conjunctiva, nl lids, nl sclera ENMT: nl external ears & nose, nl lips & teeth, nl nasal mucosa & septum Neck: non-tender, supple Respiratory: clear to auscultation, normal air movement Cardiovascular: nl pulses, regular rate and rhythm Gastrointestinal: nl liver, spleen, non-tender, soft Musculoskeletal: nl extremities to inspection, nl gait and stance Extremities: normal pulses Neurological: PRECISION FILER HAND II-XII intact, nl mental status, nl speech, nl strength Skin: nl turgor, No rash or lesions Lymph: nl lymph nodes Results Result Diagram: 08/21/16 0458 08/22/16 0535 Results 24 hrs Laboratory Tests Test 08/21/16 20:35 08/22/16 02:07 08/22/16 05:35 08/22/16 07:47 Bedside Glucose 182 157 128 Sodium Level 138 Potassium Level 3.6 Chloride Level 102 Carbon Dioxide Level 23 Anion Gap 17 H Blood Urea Nitrogen 14 Creatinine 0.79 Glucose Level 106 Calcium Level 8.2 L Total Bilirubin 19.8 H Direct Bilirubin 14.90 H Indirect Bilirubin 4.9 H Aspartate Amino Transf (AST/SGOT) 586 H Alanine Aminotransferase (ALT/SGPT) 526 H Alkaline Phosphatase 137 H Total Protein 5.8 L Albumin 2.0 L Globulin 3.80 H Albumin/Globulin Ratio 0.52 Test 08/22/16 11:44 08/22/16 13:56 08/22/16 17:26 Bedside Glucose 148 131 202 Medications Medications Current Medications Polyethylene Glycol (Miralax) 17 gm DAILY PO Last administered on 08/22/16 08: 45; Admin Dose 17 GM; Start 08/20/16 at 09:00 Tramadol HCl 50 mg 50 mg BID PRN PO PAIN Last administered on 08/22/16 07:46; Admin Dose 50 MG; Start 08/19/16 at 23:30 Ceftriaxone Sodium (Rocephin) 50 ml @ 100 mls/hr Q24H IVPB Last administered on 08/21/16 21:56; Admin Dose 100 MLS/HR; Start 08/20/16 at 22:00 Pantoprazole (Protonix Iv) 40 mg DAILY@06 IV Last administered on 08/22/16 05: 52; Admin Dose 40 MG; Start 08/20/16 at 06:00 Acetaminophen 650 mg 650 mg Q6H PRN PO PAIN AND OR ELEVATED TEMP; Start at 23:30 Dextrose/Sodium Chloride (D5-1/2ns) 1,000 ml @ 40 mls/hr Q24H IV Last administered on 08/22/16 02:08; Admin Dose 40 MLS/HR; Start 08/19/16 at 23:30 Diagnostic Test (Pha) (Accu-Chek) 1 ea 02 XX Last administered on 08/21/16 01: 56; Admin Dose 1 EA; Start 08/20/16 at 02:00 Insulin Glargine (Lantus) 15 unit DAILY@20 SC Last administered on 08/21/16 20 :39; Admin Dose 15 UNIT; Start 08/20/16 at 20:00 Miscellaneous Information 1 ea NOTE XX ; Start 08/20/16 at 18:00 Glucose (Glutose) 15 gm Q15M PRN PO DECREASED GLUCOSE; Start 08/20/16 at 18:00 Glucose (Glutose) 22.5 gm Q15M PRN PO DECREASED GLUCOSE; Start 08/20/16 at 18: 00 Dextrose (D50w Syringe) 25 ml Q15M PRN IV DECREASED GLUCOSE; Start 08/20/16 at 18:00 Dextrose (D50w Syringe) 50 ml Q15M PRN IV DECREASED GLUCOSE; Start 08/20/16 at 18:00 Glucagon (Glucagen) 1 mg Q15M PRN IM DECREASED GLUCOSE; Start 08/20/16 at 18:00 Glucose (Glutose) 15 gm Q15M PRN BUCCAL DECREASED GLUCOSE; Start 08/20/16 at 18 :00 Metoclopramide HCl (Reglan) 5 mg Q6 IV ; Start 08/22/16 at 18:50 DOREEN WILSON MD Aug 22, 2016 19:00
[2016-08-22 20:32] VITALS: BP 107/63; RESP 17
[2016-08-22] MEDS: CEFTRIAXONE 1 GM/50 ML (PMX) 50 ML IVPB SCH (21:28)
[2016-08-22] MEDS: METOCLOPRAMIDE 10 MG INJ IV SCH (21:28)
[2016-08-22] MEDS: INSULIN GLARGINE [LANtus] 3 ML PEN SC SCH (21:32)
--- NOTE | 2016-08-22 22:43 | PN ---
Date/Time of Note Date/Time of Note DATE: 08/22/16 TIME: 22:42 Assessment/Plan VTE Prophylaxis VTE Prophylaxis Intervention: other Lines/Catheters IV Catheter Type (from Nrs): Peripheral IV Urinary Cath still in place: No Assessment/Plan Chief Complaint/Hosp Course LIVER FAILURE HX EGD PLAN PER GI will need liver tranplant Problems: Subjective 24 Hr Interval Summary Respiratory: no complaints Cardiovascular: no complaints Exam/Review of Systems Vital Signs Vitals Vital Signs Date Time Temp Pulse Resp B/P Pulse Ox O2 Delivery O2 Flow Rate FiO2 08/22/16 20:32 97.9 96 17 107/63 98 08/19/16 22:00 Room Air 08/19/16 18:24 2 Intake and Output 08/21/16 08/21/16 08/22/16 15:00 23:00 07:00 Intake Total 530 ml 870 ml Balance 530 ml 870 ml Exam Neck: supple Respiratory: clear to auscultation Cardiovascular: regular rate and rhythm Gastrointestinal: soft Musculoskeletal: nl extremities to inspection Extremities: normal pulses Results Result Diagram: 08/21/16 0458 08/22/16 0535 Results 24 hrs Laboratory Tests Test 08/22/16 02:07 08/22/16 05:35 08/22/16 07:47 08/22/16 11:44 Bedside Glucose 157 128 148 Sodium Level 138 Potassium Level 3.6 Chloride Level 102 Carbon Dioxide Level 23 Anion Gap 17 H Blood Urea Nitrogen 14 Creatinine 0.79 Glucose Level 106 Calcium Level 8.2 L Total Bilirubin 19.8 H Direct Bilirubin 14.90 H Indirect Bilirubin 4.9 H Aspartate Amino Transf (AST/SGOT) 586 H Alanine Aminotransferase (ALT/SGPT) 526 H Alkaline Phosphatase 137 H Total Protein 5.8 L Albumin 2.0 L Globulin 3.80 H Albumin/Globulin Ratio 0.52 Test 08/22/16 13:56 08/22/16 17:26 08/22/16 21:21 Bedside Glucose 131 202 207 Medications Medications Current Medications Polyethylene Glycol (Miralax) 17 gm DAILY PO Last administered on 08/22/16 08: 45; Admin Dose 17 GM; Start 08/20/16 at 09:00 Tramadol HCl 50 mg 50 mg BID PRN PO PAIN Last administered on 08/22/16 21:41; Admin Dose 50 MG; Start 08/19/16 at 23:30 Ceftriaxone Sodium (Rocephin) 50 ml @ 100 mls/hr Q24H IVPB Last administered on 08/22/16 21:28; Admin Dose 100 MLS/HR; Start 08/20/16 at 22:00 Pantoprazole (Protonix Iv) 40 mg DAILY@06 IV Last administered on 08/22/16 05: 52; Admin Dose 40 MG; Start 08/20/16 at 06:00 Acetaminophen 650 mg 650 mg Q6H PRN PO PAIN AND OR ELEVATED TEMP; Start at 23:30 Dextrose/Sodium Chloride (D5-1/2ns) 1,000 ml @ 40 mls/hr Q24H IV Last administered on 08/22/16 02:08; Admin Dose 40 MLS/HR; Start 08/19/16 at 23:30 Diagnostic Test (Pha) (Accu-Chek) 1 ea 02 XX Last administered on 08/21/16 01: 56; Admin Dose 1 EA; Start 08/20/16 at 02:00 Insulin Glargine (Lantus) 15 unit DAILY@20 SC Last administered on 08/22/16 21 :32; Admin Dose 15 UNIT; Start 08/20/16 at 20:00 Miscellaneous Information 1 ea NOTE XX ; Start 08/20/16 at 18:00 Glucose (Glutose) 15 gm Q15M PRN PO DECREASED GLUCOSE; Start 08/20/16 at 18:00 Glucose (Glutose) 22.5 gm Q15M PRN PO DECREASED GLUCOSE; Start 08/20/16 at 18: 00 Dextrose (D50w Syringe) 25 ml Q15M PRN IV DECREASED GLUCOSE; Start 08/20/16 at 18:00 Dextrose (D50w Syringe) 50 ml Q15M PRN IV DECREASED GLUCOSE; Start 08/20/16 at 18:00 Glucagon (Glucagen) 1 mg Q15M PRN IM DECREASED GLUCOSE; Start 08/20/16 at 18:00 Glucose (Glutose) 15 gm Q15M PRN BUCCAL DECREASED GLUCOSE; Start 08/20/16 at 18 :00 Metoclopramide HCl (Reglan) 5 mg Q6 IV Last administered on 08/22/16 21:28; Admin Dose 5 MG; Start 08/22/16 at 18:50 NAVI VENTURA MD Aug 22, 2016 22:43
[2016-08-23] MEDS: METOCLOPRAMIDE 10 MG INJ IV SCH ×5 (00:15→23:59)
[2016-08-23] MEDS: ACCU-CHEK XX SCH (02:00)
[2016-08-23 02:56] VITALS: BP 104/56; RESP 18
[2016-08-23] MEDS: PANTOPRAZOLE 40 MG INJ IV SCH (06:38)
[2016-08-23 06:57] LABS: ALBUMIN/GLOBULIN RATIO 0.54; BILIRUBIN,INDIRECT 4.6 mg/dl (0-1.1); CALCIUM 8.1 mg/dl (8.4-10.2); CREATININE 0.98 mg/dl (0.61-1.24); POTASSIUM 3.7 mmol/L (3.5-5.1); TOTAL PROTEIN 5.7 g/dl (6.1-8.1)
[2016-08-23 07:43] LABS: BILIRUBIN,DIRECT 15.2 mg/dl (0.00-0.20)
[2016-08-23 07:44] LABS: BILIRUBIN,TOTAL 19.8 mg/dl (0.2-1.3)
[2016-08-23] MEDS: INSULIN ASPART [NOVOLOG] 3 ML PEN SC SCH ×4 (08:00→21:26)
[2016-08-23 08:41] VITALS: BP 109/66; RESP 20
[2016-08-23] MEDS: POLYETHYLENE GLYCOL 17 GM PACKET PO SCH (10:38)
[2016-08-23] MEDS: DEXTROSE 5%-0.45% NACL 1,000 ML IV SCH (10:39)
[2016-08-23] MEDS: traMADol 50 MG TAB PO PRN (10:43)
[2016-08-23 14:17] VITALS: BP 101/56; RESP 18
[2016-08-23] MEDS: ACETAMINOPHEN 325 MG TAB PO PRN (17:15)
--- NOTE | 2016-08-23 17:56 | CONS ---
Date/Time of Note Date/Time of Note DATE: 08/23/16 TIME: 17:55 Assessment/Plan Assessment/Plan Chief Complaint/Hosp Course 55-year-old male with a history of cirrhosis of liver admitted the hospital for abdominal pain nausea vomiting. This has been going on for last few days. Patient was unable to keep the food down. Today she was able to tolerate liquid diet. He had a CAT scan MRI done which showed nodular liver with ascites. His bilirubin is high. GI consult was called in for abdominal pain and abnormal liver function tests. Problems: Additional Assessment/Plan Problems: Additional Assessment/Plan Additional Assessment/Plan 1. Cirrhosis of liver 2. Portal hypertension 3. Decompensated cirrhosis 4. Ascites 5. Abdominal pain and nausea vomiting. Plan Continue with PPI and Reglan Alpha-fetoprotein Patient should be referred to transplant center Consultation Date/Type/Reason Admit Date/Time Aug 19, 2016 at 20:29 24 HR Interval Summary Free Text/Dictation Complaints of abdominal pain No nausea no vomiting Exam/Review of Systems Vital Signs Vitals Vital Signs Date Time Temp Pulse Resp B/P Pulse Ox O2 Delivery O2 Flow Rate FiO2 08/23/16 14:17 98.3 86 18 101/56 95 08/19/16 22:00 Room Air 08/19/16 18:24 2 Intake and Output 08/22/16 08/22/16 08/23/16 15:00 23:00 07:00 Intake Total 2490 ml 800 ml Balance 2490 ml 800 ml Exam Constitutional: alert, oriented, well developed Psych: nl mood/affect, no complaints Head: atraumatic, normocephalic Eyes: EOMI, PERRL, nl conjunctiva, nl lids, nl sclera ENMT: nl external ears & nose, nl lips & teeth, nl nasal mucosa & septum Neck: non-tender, supple Respiratory: clear to auscultation, normal air movement Cardiovascular: nl pulses, regular rate and rhythm Gastrointestinal: nl liver, spleen, non-tender, soft Musculoskeletal: nl extremities to inspection, nl gait and stance Extremities: normal pulses Neurological: DOUBLE END TENONER SETTER II-XII intact, nl mental status, nl speech, nl strength Skin: nl turgor, No rash or lesions Lymph: nl lymph nodes Results Result Diagram: 08/21/16 0458 08/23/16 0457 Results 24 hrs Laboratory Tests Test 08/22/16 21:21 08/23/16 02:34 08/23/16 04:57 08/23/16 07:54 Bedside Glucose 207 163 118 Sodium Level 136 Potassium Level 3.7 Chloride Level 99 Carbon Dioxide Level 23 Anion Gap 18 H Blood Urea Nitrogen 15 Creatinine 0.98 Glucose Level 133 Calcium Level 8.1 L Total Bilirubin 19.8 H Direct Bilirubin 15.20 *H Indirect Bilirubin 4.6 H Aspartate Amino Transf (AST/SGOT) 472 H Alanine Aminotransferase (ALT/SGPT) 483 H Alkaline Phosphatase 137 H Total Protein 5.7 L Albumin 2.0 L Globulin 3.70 H Albumin/Globulin Ratio 0.54 Test 08/23/16 11:29 08/23/16 17:18 Bedside Glucose 142 178 Medications Medications Current Medications Polyethylene Glycol (Miralax) 17 gm DAILY PO Last administered on 08/23/16 10: 38; Admin Dose 17 GM; Start 08/20/16 at 09:00 Tramadol HCl 50 mg 50 mg BID PRN PO PAIN Last administered on 08/23/16 10:43; Admin Dose 50 MG; Start 08/19/16 at 23:30 Ceftriaxone Sodium (Rocephin) 50 ml @ 100 mls/hr Q24H IVPB Last administered on 08/22/16 21:28; Admin Dose 100 MLS/HR; Start 08/20/16 at 22:00 Pantoprazole (Protonix Iv) 40 mg DAILY@06 IV Last administered on 08/23/16 06: 38; Admin Dose 40 MG; Start 08/20/16 at 06:00 Acetaminophen (Tylenol Tab) 650 mg Q6H PRN PO PAIN AND OR ELEVATED TEMP Last administered on 08/23/16 17:15; Admin Dose 650 MG; Start 08/19/16 at 23:30 Diagnostic Test (Pha) (Accu-Chek) 1 ea 02 XX Last administered on 08/21/16 01: 56; Admin Dose 1 EA; Start 08/20/16 at 02:00 Miscellaneous Information 1 ea NOTE XX ; Start 08/20/16 at 18:00 Glucose (Glutose) 15 gm Q15M PRN PO DECREASED GLUCOSE; Start 08/20/16 at 18:00 Glucose (Glutose) 22.5 gm Q15M PRN PO DECREASED GLUCOSE; Start 08/20/16 at 18: 00 Dextrose (D50w Syringe) 25 ml Q15M PRN IV DECREASED GLUCOSE; Start 08/20/16 at 18:00 Dextrose (D50w Syringe) 50 ml Q15M PRN IV DECREASED GLUCOSE; Start 08/20/16 at 18:00 Glucagon (Glucagen) 1 mg Q15M PRN IM DECREASED GLUCOSE; Start 08/20/16 at 18:00 Glucose (Glutose) 15 gm Q15M PRN BUCCAL DECREASED GLUCOSE; Start 08/20/16 at 18 :00 Metoclopramide HCl (Reglan) 5 mg Q6 IV Last administered on 08/23/16t 17:15; Admin Dose 5 MG; Start 08/22/16 at 18:50 Insulin Glargine (Lantus) 12 unit DAILY@20 SC ; Start 08/23/16 at 20:00 DOREEN WILSON MD Aug 23, 2016 17:55
[2016-08-23 20:07] VITALS: BP 119/76; RESP 19
[2016-08-23] MEDS: CEFTRIAXONE 1 GM/50 ML (PMX) 50 ML IVPB SCH (21:23)
[2016-08-23] MEDS: INSULIN GLARGINE [LANtus] 3 ML PEN SC SCH (21:25)
--- NOTE | 2016-08-23 22:34 | PN ---
Date/Time of Note Date/Time of Note DATE: 08/23/16 TIME: 22:33 Assessment/Plan VTE Prophylaxis VTE Prophylaxis Intervention: other Lines/Catheters IV Catheter Type (from Nrs): Peripheral IV Urinary Cath still in place: No Assessment/Plan Chief Complaint/Hosp Course LIVER FAILURE HX EGD PLAN PER GI will need liver tranplant Problems: Subjective 24 Hr Interval Summary Cardiovascular: no complaints Gastrointestinal: pain Exam/Review of Systems Vital Signs Vitals Vital Signs Date Time Temp Pulse Resp B/P Pulse Ox O2 Delivery O2 Flow Rate FiO2 08/23/16 20:07 97.9 83 19 119/76 95 08/19/16 22:00 Room Air 08/19/16 18:24 2 Intake and Output 08/22/16 08/22/16 08/23/16 15:00 23:00 07:00 Intake Total 2490 ml 800 ml Balance 2490 ml 800 ml Exam Respiratory: clear to auscultation Cardiovascular: regular rate and rhythm Gastrointestinal: soft Musculoskeletal: nl extremities to inspection Results Result Diagram: 08/21/16 0458 08/23/16 0457 Results 24 hrs Laboratory Tests Test 08/23/16 02:34 08/23/16 04:57 08/23/16 07:54 08/23/16 11:29 Bedside Glucose 163 118 142 Sodium Level 136 Potassium Level 3.7 Chloride Level 99 Carbon Dioxide Level 23 Anion Gap 18 H Blood Urea Nitrogen 15 Creatinine 0.98 Glucose Level 133 Calcium Level 8.1 L Total Bilirubin 19.8 H Direct Bilirubin 15.20 *H Indirect Bilirubin 4.6 H Aspartate Amino Transf (AST/SGOT) 472 H Alanine Aminotransferase (ALT/SGPT) 483 H Alkaline Phosphatase 137 H Total Protein 5.7 L Albumin 2.0 L Globulin 3.70 H Albumin/Globulin Ratio 0.54 Test 08/23/16 17:18 08/23/16 21:22 Bedside Glucose 178 186 Medications Medications Current Medications Polyethylene Glycol (Miralax) 17 gm DAILY PO Last administered on 08/23/16 10: 38; Admin Dose 17 GM; Start 08/20/16 at 09:00 Tramadol HCl 50 mg 50 mg BID PRN PO PAIN Last administered on 08/23/16 10:43; Admin Dose 50 MG; Start 08/19/16 at 23:30 Ceftriaxone Sodium (Rocephin) 50 ml @ 100 mls/hr Q24H IVPB Last administered on 08/23/16 21:23; Admin Dose 100 MLS/HR; Start 08/20/16 at 22:00 Pantoprazole (Protonix Iv) 40 mg DAILY@06 IV Last administered on 08/23/16 06: 38; Admin Dose 40 MG; Start 08/20/16 at 06:00 Acetaminophen (Tylenol Tab) 650 mg Q6H PRN PO PAIN AND OR ELEVATED TEMP Last administered on 08/23/16 17:15; Admin Dose 650 MG; Start 08/19/16 at 23:30 Diagnostic Test (Pha) (Accu-Chek) 1 ea 02 XX Last administered on 08/21/16 01: 56; Admin Dose 1 EA; Start 08/20/16 at 02:00 Miscellaneous Information 1 ea NOTE XX ; Start 08/20/16 at 18:00 Glucose (Glutose) 15 gm Q15M PRN PO DECREASED GLUCOSE; Start 08/20/16 at 18:00 Glucose (Glutose) 22.5 gm Q15M PRN PO DECREASED GLUCOSE; Start 08/20/16 at 18: 00 Dextrose (D50w Syringe) 25 ml Q15M PRN IV DECREASED GLUCOSE; Start 08/20/16 at 18:00 Dextrose (D50w Syringe) 50 ml Q15M PRN IV DECREASED GLUCOSE; Start 08/20/16 at 18:00 Glucagon (Glucagen) 1 mg Q15M PRN IM DECREASED GLUCOSE; Start 08/20/16 at 18:00 Glucose (Glutose) 15 gm Q15M PRN BUCCAL DECREASED GLUCOSE; Start 08/20/16 at 18 :00 Metoclopramide HCl (Reglan) 5 mg Q6 IV Last administered on 08/23/16 17:15; Admin Dose 5 MG; Start 08/22/16 at 18:50 Insulin Glargine (Lantus) 12 unit DAILY@20 SC Last administered on 08/23/16 21 :25; Admin Dose 12 UNIT; Start 08/23/16 at 20:00 Lorazepam (Ativan) 0.5 mg DAILY PRN PO ANXIETY; Start 08/23/16 at 22:00 NAVI VENTUAR MD Aug 23, 2016 22:34
[2016-08-23] MEDS: LORAZEPAM 0.5 MG TAB PO PRN (23:59)
[2016-08-24] VITALS (8 sets, daily range): BP systolic 96–147; BP diastolic 56–84; PULSE 75–83; RESP 16–18
[2016-08-24] MEDS: ACCU-CHEK XX SCH (02:00)
[2016-08-24] MEDS: METOCLOPRAMIDE 10 MG INJ IV SCH ×3 (05:43→17:58)
[2016-08-24] MEDS: PANTOPRAZOLE 40 MG INJ IV SCH (05:43)
[2016-08-24 07:46] LABS: INR 3.65; PROTIME 36.9 Sec (12.2-14.2); PT RATIO 2.9
[2016-08-24] MEDS: INSULIN ASPART [NOVOLOG] 3 ML PEN SC SCH ×4 (07:52→21:22)
[2016-08-24] MEDS: POLYETHYLENE GLYCOL 17 GM PACKET PO SCH (09:00)
--- NOTE | 2016-08-24 13:19 | RADRPT ---
PROCEDURE: US Abdomen (limited). CLINICAL INDICATION: Abdominal pain and distension. TECHNIQUE: Multiple real-time longitudinal and transverse images of the four quadrants of the abdo men were acquired utilizing a curved array transducer. Images were reviewed on a high-resolution PAC S workstation. COMPARISON: None FINDINGS: There is mild free fluid in the abdomen. IMPRESSION: 1. Mild free fluid in the abdomen. RPTAT: QQ .Jefferson Solis MD, MD Date Time Electronically viewed and signed by .Jefferson Solis MD, MD on 08/24/2016 13:19 .R/
--- NOTE | 2016-08-24 19:10 | CONS ---
Date/Time of Note Date/Time of Note DATE: 08/24/16 TIME: 19:09 Assessment/Plan Assessment/Plan Chief Complaint/Hosp Course 55-year-old male with a history of cirrhosis of liver admitted the hospital for abdominal pain nausea vomiting. This has been going on for last few days. Patient was unable to keep the food down. Today she was able to tolerate liquid diet. He had a CAT scan MRI done which showed nodular liver with ascites. His bilirubin is high. GI consult was called in for abdominal pain and abnormal liver function tests. Problems: Additional Assessment/Plan Problems: Additional Assessment/Plan Problems: Additional Assessment/Plan Additional Assessment/Plan 1. Cirrhosis of liver 2. Portal hypertension 3. Decompensated cirrhosis 4. Ascites 5. Abdominal pain and nausea vomiting. Plan Continue with PPI and Reglan Alpha-fetoprotein Patient should be referred to transplant center Advance the diet Consultation Date/Type/Reason Admit Date/Time Aug 19, 2016 at 20:29 24 HR Interval Summary Constitutional: improved Exam/Review of Systems Vital Signs Vitals Vital Signs Date Time Temp Pulse Resp B/P Pulse Ox O2 Delivery O2 Flow Rate FiO2 08/24/16 18:05 97.4 81 16 147/78 08/24/16 14:00 96 Intake and Output 08/23/16 08/23/16 08/24/16 15:00 23:00 07:00 Intake Total 870 ml 350 ml Balance 870 ml 350 ml Exam Constitutional: alert, oriented, well developed Psych: nl mood/affect, no complaints Head: atraumatic, normocephalic Eyes: EOMI, PERRL, nl conjunctiva, nl lids, nl sclera ENMT: nl external ears & nose, nl lips & teeth, nl nasal mucosa & septum Neck: non-tender, supple Respiratory: clear to auscultation, normal air movement Cardiovascular: nl pulses, regular rate and rhythm Gastrointestinal: nl liver, spleen, non-tender, soft Musculoskeletal: nl extremities to inspection, nl gait and stance Extremities: normal pulses Neurological: EVENT PLANNING INTERN II-XII intact, nl mental status, nl speech, nl strength Skin: nl turgor, No rash or lesions Lymph: nl lymph nodes Results Result Diagram: 08/21/16 0458 08/23/16 0457 Results 24 hrs Laboratory Tests Test 08/23/16 21:22 08/24/16 02:45 08/24/16 05:57 08/24/16 06:55 Bedside Glucose 186 121 Alpha Fetoprotein 9.51 H Prothrombin Time 36.9 H Prothrombin Time Ratio 2.9 INR International Normalized Ratio 3.65 Test 08/24/16 07:51 08/24/16 12:09 08/24/16 17:11 Bedside Glucose 76 137 270 H Medications Medications Current Medications Polyethylene Glycol (Miralax) 17 gm DAILY PO Last administered on 08/23/16 10: 38; Admin Dose 17 GM; Start 08/20/16 at 09:00 Tramadol HCl 50 mg 50 mg BID PRN PO PAIN Last administered on 08/23/16 10:43; Admin Dose 50 MG; Start 08/19/16 at 23:30 Ceftriaxone Sodium (Rocephin) 50 ml @ 100 mls/hr Q24H IVPB Last administered on 08/23/16 21:23; Admin Dose 100 MLS/HR; Start 08/20/16 at 22:00 Pantoprazole (Protonix Iv) 40 mg DAILY@06 IV Last administered on 08/24/16 05: 43; Admin Dose 40 MG; Start 08/20/16 at 06:00 Acetaminophen (Tylenol Tab) 650 mg Q6H PRN PO PAIN AND OR ELEVATED TEMP Last administered on 08/23/16 17:15; Admin Dose 650 MG; Start 08/19/16 at 23:30 Diagnostic Test (Pha) (Accu-Chek) 1 ea 02 XX Last administered on 08/21/16 01: 56; Admin Dose 1 EA; Start 08/20/16 at 02:00 Miscellaneous Information 1 ea NOTE XX ; Start 08/20/16 at 18:00 Glucose (Glutose) 15 gm Q15M PRN PO DECREASED GLUCOSE; Start 08/20/16 at 18:00 Glucose (Glutose) 22.5 gm Q15M PRN PO DECREASED GLUCOSE; Start 08/20/16 at 18: 00 Dextrose (D50w Syringe) 25 ml Q15M PRN IV DECREASED GLUCOSE; Start 08/20/16 at 18:00 Dextrose (D50w Syringe) 50 ml Q15M PRN IV DECREASED GLUCOSE; Start 08/20/16 at 18:00 Glucagon (Glucagen) 1 mg Q15M PRN IM DECREASED GLUCOSE; Start 08/20/16 at 18:00 Glucose (Glutose) 15 gm Q15M PRN BUCCAL DECREASED GLUCOSE; Start 08/20/16 at 18 :00 Metoclopramide HCl (Reglan) 5 mg Q6 IV Last administered on 08/24/16 17:58; Admin Dose 5 MG; Start 08/22/16 at 18:50 Insulin Glargine (Lantus) 12 unit DAILY@20 SC Last administered on 08/23/16 21 :25; Admin Dose 12 UNIT; Start 08/23/16 at 20:00 Lorazepam (Ativan) 0.5 mg DAILY PRN PO ANXIETY Last administered on 08/23/16 23:59; Admin Dose 0.5 MG; Start 08/23/16 at 22:00 DOREEN WILSON MD Aug 24, 2016 19:09
[2016-08-24] MEDS: INSULIN GLARGINE [LANtus] 3 ML PEN SC SCH (21:19)
[2016-08-24] MEDS: CEFTRIAXONE 1 GM/50 ML (PMX) 50 ML IVPB SCH (21:23)
--- NOTE | 2016-08-24 22:27 | PN ---
Date/Time of Note Date/Time of Note DATE: 08/24/16 TIME: 22:25 Assessment/Plan VTE Prophylaxis VTE Prophylaxis Intervention: other Lines/Catheters [facility] Urinary Cath still in place: No Assessment/Plan Chief Complaint/Hosp Course LIVER FAILURE HX EGD ASCITES PLAN PER GI will need liver tranplant PARACENTESIS Problems: Subjective 24 Hr Interval Summary Cardiovascular: no complaints Genitourinary: other (ASCITES+) Exam/Review of Systems Vital Signs Vitals Vital Signs Date Time Temp Pulse Resp B/P Pulse Ox O2 Delivery O2 Flow Rate FiO2 08/24/16 20:09 98.1 82 18 130/71 98 Intake and Output 08/23/16 08/23/16 08/24/16 15:00 23:00 07:00 Intake Total 870 ml 350 ml Balance 870 ml 350 ml Exam Neck: supple Respiratory: clear to auscultation Cardiovascular: regular rate and rhythm Gastrointestinal: ascites (+), soft Results Result Diagram: 08/21/16 0458 08/23/16 0457 Results 24 hrs Laboratory Tests Test 08/24/16 02:45 08/24/16 05:57 08/24/16 06:55 08/24/16 07:51 Bedside Glucose 121 76 Alpha Fetoprotein 9.51 H Prothrombin Time 36.9 H Prothrombin Time Ratio 2.9 INR International Normalized Ratio 3.65 Test 08/24/16 12:09 08/24/16 17:11 08/24/16 21:12 Bedside Glucose 137 270 H 252 H Medications Medications Current Medications Polyethylene Glycol (Miralax) 17 gm DAILY PO Last administered on 08/23/16 10: 38; Admin Dose 17 GM; Start 08/20/16 at 09:00 Tramadol HCl 50 mg 50 mg BID PRN PO PAIN Last administered on 08/23/16 10:43; Admin Dose 50 MG; Start 08/19/16 at 23:30 Ceftriaxone Sodium (Rocephin) 50 ml @ 100 mls/hr Q24H IVPB Last administered on 08/24/16 21:23; Admin Dose 100 MLS/HR; Start 08/20/16 at 22:00 Pantoprazole (Protonix Iv) 40 mg DAILY@06 IV Last administered on 08/24/16 05: 43; Admin Dose 40 MG; Start 7/16/17 at 06:00 Acetaminophen (Tylenol Tab) 650 mg Q6H PRN PO PAIN AND OR ELEVATED TEMP Last administered on 08/23/16 17:15; Admin Dose 650 MG; Start 08/19/16 at 23:30 Diagnostic Test (Pha) (Accu-Chek) 1 ea 02 XX Last administered on 08/21/16 01: 56; Admin Dose 1 EA; Start 08/20/16 at 02:00 Miscellaneous Information 1 ea NOTE XX ; Start 08/20/16 at 18:00 Glucose (Glutose) 15 gm Q15M PRN PO DECREASED GLUCOSE; Start 08/20/16 at 18:00 Glucose (Glutose) 22.5 gm Q15M PRN PO DECREASED GLUCOSE; Start 08/20/16 at 18: 00 Dextrose (D50w Syringe) 25 ml Q15M PRN IV DECREASED GLUCOSE; Start 08/20/16 at 18:00 Dextrose (D50w Syringe) 50 ml Q15M PRN IV DECREASED GLUCOSE; Start 08/20/16 at 18:00 Glucagon (Glucagen) 1 mg Q15M PRN IM DECREASED GLUCOSE; Start 08/20/16 at 18:00 Glucose (Glutose) 15 gm Q15M PRN BUCCAL DECREASED GLUCOSE; Start 08/20/16 at 18 :00 Metoclopramide HCl (Reglan) 5 mg Q6 IV Last administered on 08/24/16 17:58; Admin Dose 5 MG; Start 08/22/16 at 18:50 Insulin Glargine (Lantus) 12 unit DAILY@20 SC Last administered on 08/24/16 21 :19; Admin Dose 12 UNIT; Start 08/23/16 at 20:00 Lorazepam (Ativan) 0.5 mg DAILY PRN PO ANXIETY Last administered on 08/23/16 23:59; Admin Dose 0.5 MG; Start 08/23/16 at 22:00 NAVI VENTURA MD Aug 24, 2016 22:26
[2016-08-25] MEDS: METOCLOPRAMIDE 10 MG INJ IV SCH ×4 (00:38→17:12)
[2016-08-25] MEDS: ACCU-CHEK XX SCH (02:00)
[2016-08-25 02:17] VITALS: BP 127/59; RESP 18
[2016-08-25] MEDS: PANTOPRAZOLE 40 MG INJ IV SCH (05:21)
[2016-08-25 05:41] LABS: ADD SCAN DIFF NO
[2016-08-25 05:43] LABS: ABNORMAL IP MESSAGE 1; BASOPHILS % 0.9 % (0.0-2.0); EOSINOPHILS % 0.6 % (0.0-7.0); HEMATOCRIT 33.8 % (42.0-52.0); HEMOGLOBIN 12.5 g/dl (14.0-18.0); LYMPHOCYTES # 0.7 10^3/ul (0.8-2.9); LYMPHOCYTES % 21.1 % (15.0-51.0); MEAN CORPUSCULAR HEMOGLOBIN 34.7 pg (29.0-33.0); MEAN CORPUSCULAR VOLUME 93.9 fl (82.0-101.0); MEAN PLATELET VOLUME 11.4 fl (7.4-10.4); MONOCYTE # 0.5 10^3/ul (0.3-0.9); MONOCYTES % 13.9 % (0.0-11.0); NEUTROPHIL # 2.1 10^3/ul (1.6-7.5); NEUTROPHILS % 63.2 % (39.0-77.0); RED CELL DISTRIBUTION WIDTH 16.2 % (11.5-14.5); WHITE BLOOD COUNT 3.3 10^3/ul (4.8-10.8)
[2016-08-25 06:01] LABS: INR 2.79; PROTIME 29.8 Sec (12.2-14.2); PT RATIO 2.3
[2016-08-25 06:32] LABS: PLATELET COUNT 62 10^3/UL (140-415)
[2016-08-25 07:45] VITALS: BP 121/70; RESP 16
[2016-08-25] MEDS: INSULIN ASPART [NOVOLOG] 3 ML PEN SC SCH ×4 (07:50→20:08)
[2016-08-25] MEDS: POLYETHYLENE GLYCOL 17 GM PACKET PO SCH (08:03)
--- NOTE | 2016-08-25 10:07 | PN ---
Date/Time of Note Date/Time of Note DATE: 08/25/16 TIME: 10:04 Assessment/Plan VTE Prophylaxis VTE Prophylaxis Intervention: ambulation Lines/Catheters [facility] Saline Lock Urinary Cath still in place: No Assessment/Plan Chief Complaint/Hosp Course 1. LIVER FAILURE 2. ASCITES Problems: Assessment/Plan 1. PARACENTESIS pending due to high INR 2. VIt K once and ! unit FFP once Subjective 24 Hr Interval Summary Respiratory: shortness of breath Gastrointestinal: pain Exam/Review of Systems Vital Signs Vitals Vital Signs Date Time Temp Pulse Resp B/P Pulse Ox O2 Delivery O2 Flow Rate FiO2 08/25/16 07:45 97.7 87 16 121/70 94 Intake and Output 08/24/16 08/24/16 08/25/16 15:00 23:00 07:00 Intake Total 1530 ml 240 ml Balance 1530 ml 240 ml Exam yellowish Constitutional: alert, oriented Neck: supple Respiratory: clear to auscultation Cardiovascular: regular rate and rhythm Gastrointestinal: ascites, soft Results Result Diagram: 08/25/16 0510 08/23/16 0457 Results 24 hrs Laboratory Tests Test 08/24/16 12:09 08/24/16 17:11 08/24/16 21:12 08/25/16 03:05 Bedside Glucose 137 270 H 252 H 147 Test 08/25/16 05:10 08/25/16 05:40 08/25/16 07:50 White Blood Count 3.3 L Red Blood Count 3.60 L Hemoglobin 12.5 L Hematocrit 33.8 L Mean Corpuscular Volume 93.9 Mean Corpuscular Hemoglobin 34.7 H Mean Corpuscular Hemoglobin Concent 37.0 Red Cell Distribution Width 16.2 H Platelet Count 62 #L Mean Platelet Volume 11.4 H Neutrophils % 63.2 Lymphocytes % 21.1 Monocytes % 13.9 H Eosinophils % 0.6 Basophils % 0.9 Neutrophils # 2.1 Lymphocytes # 0.7 L Monocytes # 0.5 Eosinophils # 0.0 Basophils # 0.0 Nucleated Red Blood Cells # 0.0 Prothrombin Time 29.8 H Prothrombin Time Ratio 2.3 INR International Normalized Ratio 2.79 Lab Scanned Report BLOOD TRANSFUSION Bedside Glucose 104 Medications Medications Current Medications Polyethylene Glycol (Miralax) 17 gm DAILY PO Last administered on 08/25/16t 08: 03; Admin Dose 17 GM; Start 7/16/17 at 09:00 Tramadol HCl 50 mg 50 mg BID PRN PO PAIN Last administered on 08/23/16 10:43; Admin Dose 50 MG; Start 08/19/16 at 23:30 Ceftriaxone Sodium (Rocephin) 50 ml @ 100 mls/hr Q24H IVPB Last administered on 08/24/16 21:23; Admin Dose 100 MLS/HR; Start 08/20/16 at 22:00 Pantoprazole (Protonix Iv) 40 mg DAILY@06 IV Last administered on 08/25/16 05: 21; Admin Dose 40 MG; Start 08/20/16 at 06:00 Acetaminophen (Tylenol Tab) 650 mg Q6H PRN PO PAIN AND OR ELEVATED TEMP Last administered on 08/23/16 17:15; Admin Dose 650 MG; Start 08/19/16 at 23:30 Diagnostic Test (Pha) (Accu-Chek) 1 ea 02 XX Last administered on 08/21/16 01: 56; Admin Dose 1 EA; Start 08/20/16 at 02:00 Miscellaneous Information 1 ea NOTE XX ; Start 08/20/16 at 18:00 Glucose (Glutose) 15 gm Q15M PRN PO DECREASED GLUCOSE; Start 08/20/16 at 18:00 Glucose (Glutose) 22.5 gm Q15M PRN PO DECREASED GLUCOSE; Start 08/20/16 at 18: 00 Dextrose (D50w Syringe) 25 ml Q15M PRN IV DECREASED GLUCOSE; Start 08/20/16 at 18:00 Dextrose (D50w Syringe) 50 ml Q15M PRN IV DECREASED GLUCOSE; Start 08/20/16 at 18:00 Glucagon (Glucagen) 1 mg Q15M PRN IM DECREASED GLUCOSE; Start 08/20/16 at 18:00 Glucose (Glutose) 15 gm Q15M PRN BUCCAL DECREASED GLUCOSE; Start 08/20/16 at 18 :00 Metoclopramide HCl (Reglan) 5 mg Q6 IV Last administered on 08/25/16 05:21; Admin Dose 5 MG; Start 08/22/16 at 18:50 Lorazepam (Ativan) 0.5 mg DAILY PRN PO ANXIETY Last administered on 08/23/16 23:59; Admin Dose 0.5 MG; Start 08/23/16 at 22:00 Insulin Glargine (Lantus) 15 unit DAILY@20 SC ; Start 08/25/16 at 20:00 Phytonadione (Vitamin K) 10 mg ONCE ONCE SC ; Start 08/25/16 at 10:00; Stop at 10:01; Status KAREN WAGNER Aug 25, 2016 10:06
[2016-08-25] MEDS ORDERED: PHYTONADIONE 10 MG/ML INJ SC SCH (11:30)
[2016-08-25 14:30] VITALS: BP 120/73; RESP 18
[2016-08-25 16:05] LABS: INR 2.65; PROTIME 28.6 Sec (12.2-14.2); PT RATIO 2.2
--- NOTE | 2016-08-25 16:34 | CONS ---
Date/Time of Note Date/Time of Note DATE: 08/25/16 TIME: 16:32 Assessment/Plan Assessment/Plan Chief Complaint/Hosp Course 55-year-old male with a history of cirrhosis of liver admitted the hospital for abdominal pain nausea vomiting. This has been going on for last few days. Patient was unable to keep the food down. Today she was able to tolerate liquid diet. He had a CAT scan MRI done which showed nodular liver with ascites. His bilirubin is high. GI consult was called in for abdominal pain and abnormal liver function tests. Problems: Additional Assessment/Plan 1. Cirrhosis of liver 2. Portal hypertension 3. Decompensated cirrhosis 4. Ascites, mild 5. Abdominal pain and nausea vomiting. Plan Continue with PPI and Reglan Alpha-fetoprotein, mildly elevated 9.6 Patient should be referred to transplant center Advance the diet Continue with diuretics and p.o. fluid restriction Consultation Date/Type/Reason Admit Date/Time Aug 19, 2016 at 20:29 24 HR Interval Summary Constitutional: improved, no complaints Exam/Review of Systems Vital Signs Vitals Vital Signs Date Time Temp Pulse Resp B/P Pulse Ox O2 Delivery O2 Flow Rate FiO2 08/25/16 14:30 98.1 85 18 120/73 96 08/25/16 13:15 2.0 Intake and Output 08/24/16 08/24/16 08/25/16 15:00 23:00 07:00 Intake Total 1530 ml 240 ml Balance 1530 ml 240 ml Exam Constitutional: alert, oriented, well developed Psych: nl mood/affect, no complaints Head: atraumatic, normocephalic Eyes: EOMI, PERRL, nl conjunctiva, nl lids, nl sclera ENMT: nl external ears & nose, nl lips & teeth, nl nasal mucosa & septum Neck: non-tender, supple Respiratory: clear to auscultation, normal air movement Cardiovascular: nl pulses, regular rate and rhythm Gastrointestinal: nl liver, spleen, non-tender, soft Musculoskeletal: nl extremities to inspection, nl gait and stance Extremities: normal pulses Neurological: TAPPER HELPER II-XII intact, nl mental status, nl speech, nl strength Skin: nl turgor, No rash or lesions Lymph: nl lymph nodes Results Result Diagram: 08/25/16 0510 08/23/16 0457 Results 24 hrs Laboratory Tests Test 08/24/16 17:11 08/24/16 21:12 08/25/16 03:05 08/25/16 05:10 Bedside Glucose 270 H 252 H 147 White Blood Count 3.3 L Red Blood Count 3.60 L Hemoglobin 12.5 L Hematocrit 33.8 L Mean Corpuscular Volume 93.9 Mean Corpuscular Hemoglobin 34.7 H Mean Corpuscular Hemoglobin Concent 37.0 Red Cell Distribution Width 16.2 H Platelet Count 62 #L Mean Platelet Volume 11.4 H Neutrophils % 63.2 Lymphocytes % 21.1 Monocytes % 13.9 H Eosinophils % 0.6 Basophils % 0.9 Neutrophils # 2.1 Lymphocytes # 0.7 L Monocytes # 0.5 Eosinophils # 0.0 Basophils # 0.0 Nucleated Red Blood Cells # 0.0 Prothrombin Time 29.8 H Prothrombin Time Ratio 2.3 INR International Normalized Ratio 2.79 Test 08/25/16 05:40 08/25/16 07:50 08/25/16 11:30 08/25/16 15:23 Lab Scanned Report BLOOD TRANSFUSION Bedside Glucose 104 146 Prothrombin Time 28.6 H Prothrombin Time Ratio 2.2 INR International Normalized Ratio 2.65 Activated Partial Thromboplast Time Pending Medications Medications Current Medications Polyethylene Glycol (Miralax) 17 gm DAILY PO Last administered on 08/25/16 08: 03; Admin Dose 17 GM; Start 08/20/16 at 09:00 Tramadol HCl 50 mg 50 mg BID PRN PO PAIN Last administered on 08/23/16 10:43; Admin Dose 50 MG; Start 08/19/16 at 23:30 Ceftriaxone Sodium (Rocephin) 50 ml @ 100 mls/hr Q24H IVPB Last administered on 08/24/16 21:23; Admin Dose 100 MLS/HR; Start 08/20/16 at 22:00 Pantoprazole (Protonix Iv) 40 mg DAILY@06 IV Last administered on 08/25/16 05: 21; Admin Dose 40 MG; Start 08/20/16 at 06:00 Acetaminophen (Tylenol Tab) 650 mg Q6H PRN PO PAIN AND OR ELEVATED TEMP Last administered on 08/23/16 17:15; Admin Dose 650 MG; Start 08/19/16 at 23:30 Diagnostic Test (Pha) (Accu-Chek) 1 ea 02 XX Last administered on 08/21/16 01: 56; Admin Dose 1 EA; Start 08/20/16 at 02:00 Miscellaneous Information 1 ea NOTE XX ; Start 08/20/16 at 18:00 Glucose (Glutose) 15 gm Q15M PRN PO DECREASED GLUCOSE; Start 08/20/16 at 18:00 Glucose (Glutose) 22.5 gm Q15M PRN PO DECREASED GLUCOSE; Start 08/20/16 at 18: 00 Dextrose (D50w Syringe) 25 ml Q15M PRN IV DECREASED GLUCOSE; Start 08/20/16 at 18:00 Dextrose (D50w Syringe) 50 ml Q15M PRN IV DECREASED GLUCOSE; Start 08/20/16 at 18:00 Glucagon (Glucagen) 1 mg Q15M PRN IM DECREASED GLUCOSE; Start 08/20/16 at 18:00 Glucose (Glutose) 15 gm Q15M PRN BUCCAL DECREASED GLUCOSE; Start 08/20/16 at 18 :00 Metoclopramide HCl (Reglan) 5 mg Q6 IV Last administered on 08/25/16 11:36; Admin Dose 5 MG; Start 08/22/16 at 18:50 Lorazepam (Ativan) 0.5 mg DAILY PRN PO ANXIETY Last administered on 08/23/16 23:59; Admin Dose 0.5 MG; Start 08/23/16 at 22:00 Insulin Glargine (Lantus) 15 unit DAILY@20 SC ; Start 08/25/16 at 20:00 DOREEN WILSON MD Aug 25, 2016 16:34
[2016-08-25 16:47] LABS: PARTIAL THROMBOPLASTIN TIME 40.8 Sec (25.0-35.0)
[2016-08-25 20:00] VITALS: BP 110/58; RESP 18
[2016-08-25] MEDS: INSULIN GLARGINE [LANtus] 3 ML PEN SC SCH (20:08)
[2016-08-25] MEDS: CEFTRIAXONE 1 GM/50 ML (PMX) 50 ML IVPB SCH (22:19)
[2016-08-25] MEDS: LORAZEPAM 0.5 MG TAB PO PRN (22:45)
[2016-08-25 22:50] VITALS: BP 141/75; PULSE 88; RESP 18
[2016-08-25 23:45] VITALS: BP 131/72; PULSE 84; RESP 20
[2016-08-26] VITALS (9 sets, daily range): BP systolic 115–155; BP diastolic 58–82; PULSE 73–99; RESP 16–20
[2016-08-26] MEDS ORDERED: ZOLPIDEM 5 MG TAB PO PRN (00:30)
[2016-08-26] MEDS: ACCU-CHEK XX SCH (02:00)
[2016-08-26] MEDS: PANTOPRAZOLE 40 MG INJ IV SCH (05:27)
[2016-08-26] MEDS: METOCLOPRAMIDE 10 MG INJ IV SCH ×4 (05:27→17:27)
[2016-08-26 05:55] LABS: ABNORMAL IP MESSAGE 1; BASOPHILS % 0.4 % (0.0-2.0); EOSINOPHILS % 0.9 % (0.0-7.0); HEMATOCRIT 31.5 % (42.0-52.0); HEMOGLOBIN 11.6 g/dl (14.0-18.0); LYMPHOCYTES # 0.4 10^3/ul (0.8-2.9); LYMPHOCYTES % 18.6 % (15.0-51.0); MEAN CORPUSCULAR HEMOGLOBIN 34.8 pg (29.0-33.0); MEAN CORPUSCULAR HGB CONC 36.8 g/dl (32.0-37.0); MEAN CORPUSCULAR VOLUME 94.6 fl (82.0-101.0); MEAN PLATELET VOLUME 11.7 fl (7.4-10.4); MONOCYTE # 0.4 10^3/ul (0.3-0.9); MONOCYTES % 17.7 % (0.0-11.0); NEUTROPHIL # 1.4 10^3/ul (1.6-7.5); POSITIVE DIFF @See below; RED BLOOD COUNT 3.33 10^6/ul (4.70-6.10); RED CELL DISTRIBUTION WIDTH 16.7 % (11.5-14.5); WHITE BLOOD COUNT 2.3 10^3/ul (4.8-10.8)
[2016-08-26 06:26] LABS: CALCIUM 8.8 mg/dl (8.4-10.2); CREATININE 0.98 mg/dl (0.61-1.24); POTASSIUM 3.5 mmol/L (3.5-5.1)
[2016-08-26 07:23] LABS: PLATELET COUNT 57 10^3/UL (140-415)
[2016-08-26] MEDS: INSULIN ASPART [NOVOLOG] 3 ML PEN SC SCH ×4 (07:48→21:00)
[2016-08-26] MEDS: POLYETHYLENE GLYCOL 17 GM PACKET PO SCH (07:50)
[2016-08-26 08:48] LABS: INR 2.2; PROTIME 24.7 Sec (12.2-14.2); PT RATIO 1.9
[2016-08-26 08:49] LABS: PARTIAL THROMBOPLASTIN TIME 37.3 Sec (25.0-35.0)
--- NOTE | 2016-08-26 10:13 | PN ---
Date/Time of Note Date/Time of Note DATE: 08/26/16 TIME: 10:11 Assessment/Plan VTE Prophylaxis VTE Prophylaxis Intervention: ambulation Lines/Catheters IV Catheter Type (from [facility]): Saline Lock Urinary Cath still in place: No Assessment/Plan Chief Complaint/Hosp Course 1. LIVER FAILURE 2. ASCITES Problems: Assessment/Plan 1. paracentesis pending due to high INR Subjective 24 Hr Interval Summary Constitutional: improved, no complaints Exam/Review of Systems Vital Signs Vitals Vital Signs Date Time Temp Pulse Resp B/P Pulse Ox O2 Delivery O2 Flow Rate FiO2 08/26/16 03:50 97.8 99 18 151/80 08/25/16 22:50 96 08/25/16 20:00 2.0 Intake and Output 08/25/16 08/25/16 08/26/16 15:00 23:00 07:00 Intake Total 900 ml 690 ml Balance 900 ml 690 ml Exam Constitutional: alert, oriented Neck: supple Respiratory: clear to auscultation Cardiovascular: regular rate and rhythm Gastrointestinal: distended, soft Results Result Diagram: 08/26/16 0510 08/26/16 0510 Results 24 hrs Laboratory Tests Test 08/25/16 11:30 08/25/16 15:23 08/25/16 17:10 08/25/16 20:06 Bedside Glucose 146 167 201 Prothrombin Time 28.6 H Prothrombin Time Ratio 2.2 INR International Normalized Ratio 2.65 Activated Partial Thromboplast Time 40.8 H Test 08/25/16 22:48 08/26/16 02:32 08/26/16 05:10 08/26/16 07:05 Bedside Glucose 166 102 White Blood Count 2.3 #L Red Blood Count 3.33 L Hemoglobin 11.6 L Hematocrit 31.5 L Mean Corpuscular Volume 94.6 Mean Corpuscular Hemoglobin 34.8 H Mean Corpuscular Hemoglobin Concent 36.8 Red Cell Distribution Width 16.7 H Platelet Count 57 L Mean Platelet Volume 11.7 H Neutrophils % 62.0 Lymphocytes % 18.6 Monocytes % 17.7 H Eosinophils % 0.9 Basophils % 0.4 Nucleated Red Blood Cells % 0.0 Neutrophils # 1.4 L Lymphocytes # 0.4 L Monocytes # 0.4 Eosinophils # 0.0 Basophils # 0.0 Nucleated Red Blood Cells # 0.0 Sodium Level 142 Potassium Level 3.5 Chloride Level 103 Carbon Dioxide Level 26 Anion Gap 17 H Blood Urea Nitrogen 16 Creatinine 0.98 Glucose Level 88 Calcium Level 8.8 Lab Scanned Report BLOOD TRANSFUSION Test 08/26/16 07:46 08/26/16 08:13 Bedside Glucose 113 Prothrombin Time 24.7 H Prothrombin Time Ratio 1.9 INR International Normalized Ratio 2.20 Activated Partial Thromboplast Time 37.3 H Medications Medications Current Medications Polyethylene Glycol (Miralax) 17 gm DAILY PO Last administered on 08/26/16 07: 50; Admin Dose 17 GM; Start 08/20/16 at 09:00 Tramadol HCl 50 mg 50 mg BID PRN PO PAIN Last administered on 08/23/16 10:43; Admin Dose 50 MG; Start 08/19/16 at 23:30 Ceftriaxone Sodium (Rocephin) 50 ml @ 100 mls/hr Q24H IVPB Last administered on 08/25/16 22:19; Admin Dose 100 MLS/HR; Start 08/20/16 at 22:00 Pantoprazole (Protonix Iv) 40 mg DAILY@06 IV Last administered on 08/26/16 05: 27; Admin Dose 40 MG; Start 08/20/16 at 06:00 Acetaminophen (Tylenol Tab) 650 mg Q6H PRN PO PAIN AND OR ELEVATED TEMP Last administered on 08/23/16 17:15; Admin Dose 650 MG; Start 08/19/16 at 23:30 Diagnostic Test (Pha) (Accu-Chek) 1 ea 02 XX Last administered on 08/21/16 01: 56; Admin Dose 1 EA; Start 08/20/16 at 02:00 Miscellaneous Information 1 ea NOTE XX ; Start 08/20/16 at 18:00 Glucose (Glutose) 15 gm Q15M PRN PO DECREASED GLUCOSE; Start 08/20/16 at 18:00 Glucose (Glutose) 22.5 gm Q15M PRN PO DECREASED GLUCOSE; Start 08/20/16 at 18: 00 Dextrose (D50w Syringe) 25 ml Q15M PRN IV DECREASED GLUCOSE; Start 08/20/16 at 18:00 Dextrose (D50w Syringe) 50 ml Q15M PRN IV DECREASED GLUCOSE; Start 08/20/16 at 18:00 Glucagon (Glucagen) 1 mg Q15M PRN IM DECREASED GLUCOSE; Start 08/20/16 at 18:00 Glucose (Glutose) 15 gm Q15M PRN BUCCAL DECREASED GLUCOSE; Start 08/20/16 at 18 :00 Metoclopramide HCl (Reglan) 5 mg Q6 IV Last administered on 08/26/16 05:27; Admin Dose 5 MG; Start 08/22/16 at 18:50 Lorazepam (Ativan) 0.5 mg DAILY PRN PO ANXIETY Last administered on 08/25/16 22:45; Admin Dose 0.5 MG; Start 08/23/16 at 22:00 Insulin Glargine (Lantus) 15 unit DAILY@20 SC Last administered on 08/25/16 20 :08; Admin Dose 15 UNIT; Start 08/25/16 at 20:00 Zolpidem Tartrate (Ambien) 2.5 mg HS PRN PO INSOMNIA; Start 08/26/16 at 00:30 KAREN BURRELL Aug 26, 2016 10:13
[2016-08-26] MEDS ORDERED: PHYTONADIONE 10 MG/ML INJ SC ONE (11:30)
--- NOTE | 2016-08-26 13:35 | CONS ---
Date/Time of Note Date/Time of Note DATE: 08/26/16 TIME: 13:35 Assessment/Plan Assessment/Plan Chief Complaint/Hosp Course 55-year-old male with a history of cirrhosis of liver admitted the hospital for abdominal pain nausea vomiting. This has been going on for last few days. Patient was unable to keep the food down. Today she was able to tolerate liquid diet. He had a CAT scan MRI done which showed nodular liver with ascites. His bilirubin is high. GI consult was called in for abdominal pain and abnormal liver function tests. Problems: Additional Assessment/Plan Additional Assessment/Plan 1. Cirrhosis of liver 2. Portal hypertension 3. Decompensated cirrhosis 4. Ascites, mild 5. Abdominal pain and nausea vomiting. Plan Continue with PPI and Reglan Alpha-fetoprotein, mildly elevated 9.6 Patient should be referred to transplant center Advance the diet Continue with diuretics and p.o. fluid restriction INR is slowly coming down Consultation Date/Type/Reason Admit Date/Time Aug 19, 2016 at 20:29 24 HR Interval Summary Constitutional: improved, no complaints Exam/Review of Systems Vital Signs Vitals Vital Signs Date Time Temp Pulse Resp B/P Pulse Ox O2 Delivery O2 Flow Rate FiO2 08/26/16 07:50 97.5 80 18 135/78 94 08/25/16 20:00 2.0 Intake and Output 08/25/16 08/25/16 08/26/16 15:00 23:00 07:00 Intake Total 900 ml 690 ml Balance 900 ml 690 ml Exam Constitutional: alert, oriented, well developed Psych: nl mood/affect, no complaints Head: atraumatic, normocephalic Eyes: EOMI, PERRL, nl conjunctiva, nl lids, nl sclera ENMT: nl external ears & nose, nl lips & teeth, nl nasal mucosa & septum Neck: non-tender, supple Respiratory: clear to auscultation, normal air movement Cardiovascular: nl pulses, regular rate and rhythm Gastrointestinal: nl liver, spleen, non-tender, soft Musculoskeletal: nl extremities to inspection, nl gait and stance Extremities: normal pulses 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, nl mental status, nl speech, nl strength Skin: nl turgor, No rash or lesions Lymph: nl lymph nodes Results Result Diagram: 08/26/16 0510 08/26/16 0510 Results 24 hrs Laboratory Tests Test 08/25/16 15:23 08/25/16 17:10 08/25/16 20:06 08/25/16 22:48 Prothrombin Time 28.6 H Prothrombin Time Ratio 2.2 INR International Normalized Ratio 2.65 Activated Partial Thromboplast Time 40.8 H Bedside Glucose 167 201 166 Test 08/26/16 02:32 08/26/16 05:10 08/26/16 07:05 08/26/16 07:46 Bedside Glucose 102 113 White Blood Count 2.3 #L Red Blood Count 3.33 L Hemoglobin 11.6 L Hematocrit 31.5 L Mean Corpuscular Volume 94.6 Mean Corpuscular Hemoglobin 34.8 H Mean Corpuscular Hemoglobin Concent 36.8 Red Cell Distribution Width 16.7 H Platelet Count 57 L Mean Platelet Volume 11.7 H Neutrophils % 62.0 Lymphocytes % 18.6 Monocytes % 17.7 H Eosinophils % 0.9 Basophils % 0.4 Nucleated Red Blood Cells % 0.0 Neutrophils # 1.4 L Lymphocytes # 0.4 L Monocytes # 0.4 Eosinophils # 0.0 Basophils # 0.0 Nucleated Red Blood Cells # 0.0 Sodium Level 142 Potassium Level 3.5 Chloride Level 103 Carbon Dioxide Level 26 Anion Gap 17 H Blood Urea Nitrogen 16 Creatinine 0.98 Glucose Level 88 Calcium Level 8.8 Lab Scanned Report BLOOD TRANSFUSION Test 08/26/16 08:13 08/26/16 11:06 Prothrombin Time 24.7 H Prothrombin Time Ratio 1.9 INR International Normalized Ratio 2.20 Activated Partial Thromboplast Time 37.3 H Bedside Glucose 138 Medications Medications Current Medications Polyethylene Glycol (Miralax) 17 gm DAILY PO Last administered on 08/26/16 07: 50; Admin Dose 17 GM; Start 08/20/16 at 09:00 Tramadol HCl 50 mg 50 mg BID PRN PO PAIN Last administered on 08/23/16 10:43; Admin Dose 50 MG; Start 08/19/16 at 23:30 Ceftriaxone Sodium (Rocephin) 50 ml @ 100 mls/hr Q24H IVPB Last administered on 08/25/16 22:19; Admin Dose 100 MLS/HR; Start 08/20/16 at 22:00 Pantoprazole (Protonix Iv) 40 mg DAILY@06 IV Last administered on 08/26/16 05: 27; Admin Dose 40 MG; Start 08/20/16 at 06:00 Acetaminophen (Tylenol Tab) 650 mg Q6H PRN PO PAIN AND OR ELEVATED TEMP Last administered on 08/23/16 17:15; Admin Dose 650 MG; Start 08/19/16 at 23:30 Diagnostic Test (Pha) (Accu-Chek) 1 ea 02 XX Last administered on 08/21/16 01: 56; Admin Dose 1 EA; Start 08/20/16 at 02:00 Miscellaneous Information 1 ea NOTE XX ; Start 08/20/16 at 18:00 Glucose (Glutose) 15 gm Q15M PRN PO DECREASED GLUCOSE; Start 08/20/16 at 18:00 Glucose (Glutose) 22.5 gm Q15M PRN PO DECREASED GLUCOSE; Start 08/20/16 at 18: 00 Dextrose (D50w Syringe) 25 ml Q15M PRN IV DECREASED GLUCOSE; Start 08/20/16 at 18:00 Dextrose (D50w Syringe) 50 ml Q15M PRN IV DECREASED GLUCOSE; Start 08/20/16 at 18:00 Glucagon (Glucagen) 1 mg Q15M PRN IM DECREASED GLUCOSE; Start 08/20/16 at 18:00 Glucose (Glutose) 15 gm Q15M PRN BUCCAL DECREASED GLUCOSE; Start 08/20/16 at 18 :00 Metoclopramide HCl (Reglan) 5 mg Q6 IV Last administered on 08/26/16 11:10; Admin Dose 5 MG; Start 08/22/16 at 18:50 Lorazepam (Ativan) 0.5 mg DAILY PRN PO ANXIETY Last administered on 08/25/16 22:45; Admin Dose 0.5 MG; Start 08/23/16 at 22:00 Insulin Glargine (Lantus) 15 unit DAILY@20 SC Last administered on 08/25/16 20 :08; Admin Dose 15 UNIT; Start 08/25/16 at 20:00 Zolpidem Tartrate (Ambien) 2.5 mg HS PRN PO INSOMNIA; Start 08/26/16 at 00:30 DOREEN WILSON MD Aug 26, 2016 13:35
[2016-08-26] MEDS ORDERED: LIDOCAINE 1% (MPF) 5 ML VIAL ONE (15:54)
--- NOTE | 2016-08-26 16:50 | RADRPT ---
PROCEDURE: Ultrasound guided paracentesis. CLINICAL INDICATION: Ascites and shortness of breath. COMPARISON: No prior studies are available for comparison. TECHNIQUE: The risks, benefits, and alternatives were explained to the patient and/or the patient's family, inc luding but not limited to bleeding, infection, pain, visceral or vascular damage, shock, and . The patient and/or the patient's family understood the risks and the alternatives and wished to pro ceed with the procedure. Informed written consent was obtained. A procedural time out was performed . The patient's name, date of , and procedure to be performed were verified. Utilizing ultrasound guidance, optimal location for entry to the peritoneal cavity was ascertained. The overlying skin was prepped and draped in the usual sterile fashion. Approximately 10 ml of 1% Xylocaine was injected locally for pain control. Using ultrasound guidance, an 8 [place] catheter wa s introduced into the peritoneal cavity in the right lower quadrant without difficulty. FINDINGS: Initial images demonstrate ascites. Approximately 2.4 liters of serous fluid was aspirated and sent with the patient to the nurses station. The patient tolerated the procedure well without complicati on. IMPRESSION: 1. Successful ultrasound-guided paracentesis. RPTAT: QQ .Jefferson Solis MD, MD Date Time Electronically viewed and signed by .Jefferson Solis MD, on 08/26/2016 16:50 .R/
[2016-08-26 17:28] LABS: FLUID GLUCOSE 168 mg/dl; FLUID LD 175 U/L; FLUID TYPE ASCITES FLUID; FLUID TYPE ASCITIES FLUID
[2016-08-26 17:29] LABS: FLUID TOTAL PROTEIN < 2.0 g/dl
[2016-08-26 18:04] LABS: FLD CLARITY CLEAR; FLD COLOR YELLOW; FLD MN % (M) 93 %; FLD PMN % (M) 7 %; FLD TYPE ASCITES; FLD WBC 61 /cmm
[2016-08-26 18:05] LABS: FLD RBC 0 /uL
[2016-08-26 18:49] LABS: INR 1.96; PROTIME 22.5 Sec (12.2-14.2); PT RATIO 1.8
[2016-08-26 18:50] LABS: PARTIAL THROMBOPLASTIN TIME 36.9 Sec (25.0-35.0)
[2016-08-26] MEDS: CEFTRIAXONE 1 GM/50 ML (PMX) 50 ML IVPB SCH (21:53)
[2016-08-26] MEDS: INSULIN GLARGINE [LANtus] 3 ML PEN SC SCH (21:53)
[2016-08-27] MEDS: METOCLOPRAMIDE 10 MG INJ IV SCH ×5 (00:22→23:41)
[2016-08-27] MEDS: ACCU-CHEK XX SCH (01:07)
[2016-08-27] MEDS: PANTOPRAZOLE 40 MG INJ IV SCH (05:20)
[2016-08-27 06:42] LABS: ABNORMAL IP MESSAGE 1; BASOPHILS % 0.8 % (0.0-2.0); EOSINOPHILS % 0.8 % (0.0-7.0); HEMATOCRIT 32.3 % (42.0-52.0); LYMPHOCYTES # 0.6 10^3/ul (0.8-2.9); LYMPHOCYTES % 26.7 % (15.0-51.0); MEAN CORPUSCULAR HGB CONC 37.2 g/dl (32.0-37.0); MEAN CORPUSCULAR VOLUME 94.2 fl (82.0-101.0); MEAN PLATELET VOLUME 11.8 fl (7.4-10.4); MONOCYTE # 0.3 10^3/ul (0.3-0.9); NEUTROPHIL # 1.4 10^3/ul (1.6-7.5); NEUTROPHILS % 57.7 % (39.0-77.0); PLATELET COUNT 62 10^3/UL (140-415); POSITIVE DIFF @See below; RED BLOOD COUNT 3.43 10^6/ul (4.70-6.10); RED CELL DISTRIBUTION WIDTH 16.8 % (11.5-14.5); WHITE BLOOD COUNT 2.4 10^3/ul (4.8-10.8)
[2016-08-27 07:22] LABS: CREATININE 0.85 mg/dl (0.61-1.24); POTASSIUM 3.2 mmol/L (3.5-5.1)
[2016-08-27] MEDS: INSULIN ASPART [NOVOLOG] 3 ML PEN SC SCH ×4 (08:00→20:31)
[2016-08-27] MEDS: POLYETHYLENE GLYCOL 17 GM PACKET PO SCH (08:01)
[2016-08-27 09:05] VITALS: BP 136/71; RESP 17
--- NOTE | 2016-08-27 11:15 | PN ---
Date/Time of Note Date/Time of Note DATE: 08/27/16 TIME: 11:14 Assessment/Plan VTE Prophylaxis VTE Prophylaxis Intervention: ambulation Lines/Catheters IV [facility] Saline Lock Urinary Cath still in place: No Assessment/Plan Chief Complaint/Hosp Course 1. LIVER FAILURE 2. ASCITES 3. S/p paracentesis Problems: Assessment/Plan 1. Pending discharge Subjective 24 Hr Interval Summary Constitutional: improved, no complaints Exam/Review of Systems Vital Signs Vitals Vital Signs Date Time Temp Pulse Resp B/P Pulse Ox O2 Delivery O2 Flow Rate FiO2 08/27/16 09:05 97.6 87 17 136/71 98 08/25/16 20:00 2.0 Intake and Output 08/26/16 08/26/16 08/27/16 15:00 23:00 07:00 Intake Total 1320 ml 120 ml Balance 1320 ml 120 ml Exam Constitutional: alert, oriented Respiratory: clear to auscultation Cardiovascular: regular rate and rhythm Gastrointestinal: soft Results Result Diagram: 08/27/16 0506 08/27/16 0506 Results 24 hrs Laboratory Tests Test 08/26/16 16:00 08/26/16 17:21 08/26/16 18:15 08/26/16 21:51 Body Fluid Type ASCITES Body Fluid Volume 1100.0 Body Fluid Color YELLOW Body Fluid Appearance CLEAR Body Fluid WBC 61 Body Fluid RBC (Auto) 0 Body Fluid Polynuclear WBCs 7 Body Fluid Polynuclear WBCs (%) 7.0 Body Fluid Mononuclear WBCs 93 Body Fluid Mononuclear Cells % Auto 93.0 Body Fluid Glucose 168 Body Fluid Total Protein < 2.0 Body Fluid Lactate Dehydrogenase 175 Bedside Glucose 158 166 Prothrombin Time 22.5 H Prothrombin Time Ratio 1.8 INR International Normalized Ratio 1.96 Activated Partial Thromboplast Time 36.9 H Test 08/27/16 05:06 08/27/16 06:13 08/27/16 07:49 White Blood Count 2.4 L Red Blood Count 3.43 L Hemoglobin 12.0 L Hematocrit 32.3 L Mean Corpuscular Volume 94.2 Mean Corpuscular Hemoglobin 35.0 H Mean Corpuscular Hemoglobin Concent 37.2 H Red Cell Distribution Width 16.8 H Platelet Count 62 L Mean Platelet Volume 11.8 H Neutrophils % 57.7 Lymphocytes % 26.7 Monocytes % 14.0 H Eosinophils % 0.8 Basophils % 0.8 Nucleated Red Blood Cells % 0.0 Neutrophils # 1.4 L Lymphocytes # 0.6 L Monocytes # 0.3 Eosinophils # 0.0 Basophils # 0.0 Nucleated Red Blood Cells # 0.0 Sodium Level 142 Potassium Level 3.2 L Chloride Level 99 Carbon Dioxide Level 29 Anion Gap 17 H Blood Urea Nitrogen 14 Creatinine 0.85 Glucose Level 106 Calcium Level 9.0 Lab Scanned Report BLOOD TRANSFUSION Bedside Glucose 93 Medications Medications Current Medications Polyethylene Glycol (Miralax) 17 gm DAILY PO Last administered on 08/27/16 08: 01; Admin Dose 17 GM; Start 08/20/16 at 09:00 Tramadol HCl 50 mg 50 mg BID PRN PO PAIN Last administered on 08/23/16 10:43; Admin Dose 50 MG; Start 08/19/16 at 23:30 Ceftriaxone Sodium (Rocephin) 50 ml @ 100 mls/hr Q24H IVPB Last administered on 08/26/16 21:53; Admin Dose 100 MLS/HR; Start 08/20/16 at 22:00 Pantoprazole (Protonix Iv) 40 mg DAILY@06 IV Last administered on 08/27/16 05: 20; Admin Dose 40 MG; Start 08/20/16 at 06:00 Acetaminophen (Tylenol Tab) 650 mg Q6H PRN PO PAIN AND OR ELEVATED TEMP Last administered on 08/23/16 17:15; Admin Dose 650 MG; Start 08/19/16 at 23:30 Diagnostic Test (Pha) (Accu-Chek) 1 ea 02 XX Last administered on 08/21/16 01: 56; Admin Dose 1 EA; Start 08/20/16 at 02:00 Miscellaneous Information 1 ea NOTE XX ; Start 08/20/16 at 18:00 Glucose (Glutose) 15 gm Q15M PRN PO DECREASED GLUCOSE; Start 08/20/16 at 18:00 Glucose (Glutose) 22.5 gm Q15M PRN PO DECREASED GLUCOSE; Start 08/20/16 at 18: 00 Dextrose (D50w Syringe) 25 ml Q15M PRN IV DECREASED GLUCOSE; Start 08/20/16 at 18:00 Dextrose (D50w Syringe) 50 ml Q15M PRN IV DECREASED GLUCOSE; Start 08/20/16 at 18:00 Glucagon (Glucagen) 1 mg Q15M PRN IM DECREASED GLUCOSE; Start 08/20/16 at 18:00 Glucose (Glutose) 15 gm Q15M PRN BUCCAL DECREASED GLUCOSE; Start 08/20/16 at 18 :00 Metoclopramide HCl (Reglan) 5 mg Q6 IV Last administered on 08/27/16 05:20; Admin Dose 5 MG; Start 08/22/16 at 18:50 Lorazepam (Ativan) 0.5 mg DAILY PRN PO ANXIETY Last administered on 08/25/16 22:45; Admin Dose 0.5 MG; Start 08/23/16 at 22:00 Insulin Glargine (Lantus) 15 unit DAILY@20 SC Last administered on 08/26/16 21 :53; Admin Dose 15 UNIT; Start 08/25/16 at 20:00 Zolpidem Tartrate (Ambien) 2.5 mg HS PRN PO INSOMNIA; Start 08/26/16 at 00:30 KAREN BURRELL Aug 27, 2016 11:15
--- NOTE | 2016-08-27 13:22 | CONS ---
Date/Time of Note Date/Time of Note DATE: 08/27/16 TIME: 13:17 Assessment/Plan Assessment/Plan Chief Complaint/Hosp Course 55-year-old male with a history of cirrhosis of liver admitted the hospital for abdominal pain nausea vomiting. This has been going on for last few days. Patient was unable to keep the food down. Today she was able to tolerate liquid diet. He had a CAT scan MRI done which showed nodular liver with ascites. His bilirubin is high. GI consult was called in for abdominal pain and abnormal liver function tests. Problems: Additional Assessment/Plan 1. Cirrhosis of liver 2. Portal hypertension 3. Decompensated cirrhosis 4. Ascites, mild 5. Abdominal pain and nausea vomiting. Plan Continue with PPI and Reglan Alpha-fetoprotein, mildly elevated 9.6 Patient should be referred to transplant center Advance the diet Continue with diuretics and p.o. fluid restriction INR is slowly coming down Status post a paracentesis to enough liters of fluid removed CMP and ammonia in a.m. Consultation Date/Type/Reason Admit Date/Time Aug 19, 2016 at 20:29 24 HR Interval Summary Free Text/Dictation Patient is unsteady gait as per the staff Exam/Review of Systems Vital Signs Vitals Vital Signs Date Time Temp Pulse Resp B/P Pulse Ox O2 Delivery O2 Flow Rate FiO2 08/27/16 09:05 97.6 87 17 136/71 98 08/25/16 20:00 2.0 Intake and Output 08/26/16 08/26/16 08/27/16 15:00 23:00 07:00 Intake Total 1320 ml 120 ml Balance 1320 ml 120 ml Exam Constitutional: alert, oriented, well developed Psych: nl mood/affect, no complaints Head: atraumatic, normocephalic Eyes: EOMI, PERRL, nl conjunctiva, nl lids, nl sclera ENMT: nl external ears & nose, nl lips & teeth, nl nasal mucosa & septum Neck: non-tender, supple Respiratory: clear to auscultation, normal air movement Cardiovascular: nl pulses, regular rate and rhythm Gastrointestinal: nl liver, spleen, non-tender, soft Musculoskeletal: nl extremities to inspection, nl gait and stance Extremities: normal pulses 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, nl mental status, nl speech, nl strength Skin: nl turgor, No rash or lesions Lymph: nl lymph nodes Results Result Diagram: 08/27/16 0506 08/27/16 0506 Results 24 hrs Laboratory Tests Test 08/26/16 16:00 08/26/16 17:21 08/26/16 18:15 08/26/16 21:51 Body Fluid Type ASCITES Body Fluid Volume 1100.0 Body Fluid Color YELLOW Body Fluid Appearance CLEAR Body Fluid WBC 61 Body Fluid RBC (Auto) 0 Body Fluid Polynuclear WBCs 7 Body Fluid Polynuclear WBCs (%) 7.0 Body Fluid Mononuclear WBCs 93 Body Fluid Mononuclear Cells % Auto 93.0 Body Fluid Glucose 168 Body Fluid Total Protein < 2.0 Body Fluid Lactate Dehydrogenase 175 Bedside Glucose 158 166 Prothrombin Time 22.5 H Prothrombin Time Ratio 1.8 INR International Normalized Ratio 1.96 Activated Partial Thromboplast Time 36.9 H Test 08/27/16 05:06 08/27/16 06:13 08/27/16 07:49 08/27/16 11:46 White Blood Count 2.4 L Red Blood Count 3.43 L Hemoglobin 12.0 L Hematocrit 32.3 L Mean Corpuscular Volume 94.2 Mean Corpuscular Hemoglobin 35.0 H Mean Corpuscular Hemoglobin Concent 37.2 H Red Cell Distribution Width 16.8 H Platelet Count 62 L Mean Platelet Volume 11.8 H Neutrophils % 57.7 Lymphocytes % 26.7 Monocytes % 14.0 H Eosinophils % 0.8 Basophils % 0.8 Nucleated Red Blood Cells % 0.0 Neutrophils # 1.4 L Lymphocytes # 0.6 L Monocytes # 0.3 Eosinophils # 0.0 Basophils # 0.0 Nucleated Red Blood Cells # 0.0 Sodium Level 142 Potassium Level 3.2 L Chloride Level 99 Carbon Dioxide Level 29 Anion Gap 17 H Blood Urea Nitrogen 14 Creatinine 0.85 Glucose Level 106 Calcium Level 9.0 Lab Scanned Report BLOOD TRANSFUSION Bedside Glucose 93 177 Medications Medications Current Medications Polyethylene Glycol (Miralax) 17 gm DAILY PO Last administered on 08/27/16 08: 01; Admin Dose 17 GM; Start 08/20/16 at 09:00 Tramadol HCl (Ultram) 50 mg BID PRN PO PAIN Last administered on 08/23/16 10: 43; Admin Dose 50 MG; Start 08/19/16 at 23:30 Acetaminophen (Tylenol Tab) 650 mg Q6H PRN PO PAIN AND OR ELEVATED TEMP Last administered on 08/23/16 17:15; Admin Dose 650 MG; Start 08/19/16 at 23:30 Diagnostic Test (Pha) (Accu-Chek) 1 ea 02 XX Last administered on 08/21/16 01: 56; Admin Dose 1 EA; Start 08/20/16 at 02:00 Miscellaneous Information 1 ea NOTE XX ; Start 08/20/16 at 18:00 Glucose (Glutose) 15 gm Q15M PRN PO DECREASED GLUCOSE; Start 08/20/16 at 18:00 Glucose (Glutose) 22.5 gm Q15M PRN PO DECREASED GLUCOSE; Start 08/20/16 at 18: 00 Dextrose (D50w Syringe) 25 ml Q15M PRN IV DECREASED GLUCOSE; Start 08/20/16 at 18:00 Dextrose (D50w Syringe) 50 ml Q15M PRN IV DECREASED GLUCOSE; Start 08/20/16 at 18:00 Glucagon (Glucagen) 1 mg Q15M PRN IM DECREASED GLUCOSE; Start 08/20/16 at 18:00 Glucose (Glutose) 15 gm Q15M PRN BUCCAL DECREASED GLUCOSE; Start 08/20/16 at 18 :00 Metoclopramide HCl (Reglan) 5 mg Q6 IV Last administered on 08/27/16 11:57; Admin Dose 5 MG; Start 08/22/16 at 18:50 Lorazepam (Ativan) 0.5 mg DAILY PRN PO ANXIETY Last administered on 08/25/16 22:45; Admin Dose 0.5 MG; Start 08/23/16 at 22:00 Insulin Glargine (Lantus) 15 unit DAILY@20 SC Last administered on 08/26/16 21 :53; Admin Dose 15 UNIT; Start 08/25/16 at 20:00 Zolpidem Tartrate (Ambien) 2.5 mg HS PRN PO INSOMNIA; Start 08/26/16 at 00:30 Potassium Chloride (Potassium Chloride Pwd/Soln) 40 meq DAILY PO ; Start at 09:00 Pantoprazole (Protonix Iv) 40 mg DAILY@06 IV ; Start 08/28/16 at 06:00 DOREEN WILSON MD Aug 27, 2016 13:22
[2016-08-27 15:49] VITALS: BP 131/71; RESP 18
[2016-08-27] MEDS: POTASSIUM CHLORIDE 20 MEQ POWDER FOR ORAL SOLN PO SCH (17:24)
[2016-08-27 20:00] VITALS: BP 134/66; RESP 20
[2016-08-27] MEDS: INSULIN GLARGINE [LANtus] 3 ML PEN SC SCH (20:30)
[2016-08-28 02:00] VITALS: BP 136/64; RESP 17
[2016-08-28] MEDS: ACCU-CHEK XX SCH (02:00)
[2016-08-28] MEDS: METOCLOPRAMIDE 10 MG INJ IV SCH ×3 (04:59→17:17)
[2016-08-28] MEDS: PANTOPRAZOLE 40 MG INJ IV SCH (05:02)
[2016-08-28 06:38] LABS: ALBUMIN 2.3 g/dl (3.3-4.9); ALBUMIN/GLOBULIN RATIO 0.62; BILIRUBIN,DIRECT 10.9 mg/dl (0.00-0.20); BILIRUBIN,INDIRECT 5.6 mg/dl (0-1.1); BILIRUBIN,TOTAL 16.5 mg/dl (0.2-1.3); CALCIUM 8.8 mg/dl (8.4-10.2); CREATININE 0.73 mg/dl (0.61-1.24); POTASSIUM 3.6 mmol/L (3.5-5.1)
[2016-08-28 08:00] VITALS: BP 122/72; RESP 16
[2016-08-28] MEDS: INSULIN ASPART [NOVOLOG] 3 ML PEN SC SCH ×4 (08:00→21:00)
[2016-08-28] MEDS ORDERED: POTASSIUM CHLORIDE 20 MEQ POWDER FOR ORAL SOLN PO SCH (09:00)
[2016-08-28] MEDS: POTASSIUM CHLORIDE 20 MEQ POWDER FOR ORAL SOLN PO SCH (09:47)
[2016-08-28] MEDS: POLYETHYLENE GLYCOL 17 GM PACKET PO SCH (09:47)
[2016-08-28 14:00] VITALS: BP 135/80; RESP 18
--- NOTE | 2016-08-28 16:53 | CONS ---
Date/Time of Note Date/Time of Note DATE: 08/28/16 TIME: 16:53 Assessment/Plan Assessment/Plan Chief Complaint/Hosp Course 55-year-old male with a history of cirrhosis of liver admitted the hospital for abdominal pain nausea vomiting. This has been going on for last few days. Patient was unable to keep the food down. Today she was able to tolerate liquid diet. He had a CAT scan MRI done which showed nodular liver with ascites. His bilirubin is high. GI consult was called in for abdominal pain and abnormal liver function tests. Problems: Additional Assessment/Plan Additional Assessment/Plan 1. Cirrhosis of liver 2. Portal hypertension 3. Decompensated cirrhosis 4. Ascites, mild 5. Abdominal pain and nausea vomiting. Plan Continue with PPI and Reglan Alpha-fetoprotein, mildly elevated 9.6 Patient should be referred to transplant center Advance the diet Continue with diuretics and p.o. fluid restriction INR is slowly coming down Status post a paracentesis to enough liters of fluid removed Rifaximin 550 twice daily Consultation Date/Type/Reason Admit Date/Time Aug 19, 2016 at 20:29 24 HR Interval Summary Constitutional: no complaints Exam/Review of Systems Vital Signs Vitals Vital Signs Date Time Temp Pulse Resp B/P Pulse Ox O2 Delivery O2 Flow Rate FiO2 08/28/16 14:00 98.0 98 18 135/80 96 08/25/16 20:00 2.0 Intake and Output 08/27/16 08/27/16 08/28/16 15:00 23:00 07:00 Intake Total 560 ml 100 ml Balance 560 ml 100 ml Exam Constitutional: alert, oriented, well developed Psych: nl mood/affect, no complaints Head: atraumatic, normocephalic Eyes: EOMI, PERRL, nl conjunctiva, nl lids, nl sclera ENMT: nl external ears & nose, nl lips & teeth, nl nasal mucosa & septum Neck: non-tender, supple Respiratory: clear to auscultation, normal air movement Cardiovascular: nl pulses, regular rate and rhythm Gastrointestinal: nl liver, spleen, non-tender, soft Musculoskeletal: nl extremities to inspection, nl gait and stance Extremities: normal pulses 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, nl mental status, nl speech, nl strength Skin: nl turgor, No rash or lesions Lymph: nl lymph nodes Results Result Diagram: 08/27/16 0506 08/28/16 0529 Results 24 hrs Laboratory Tests Test 08/27/16 17:22 08/27/16 20:27 08/28/16 02:40 08/28/16 05:29 Bedside Glucose 198 292 H 102 Sodium Level 140 Potassium Level 3.6 Chloride Level 100 Carbon Dioxide Level 29 Anion Gap 15 Blood Urea Nitrogen 14 Creatinine 0.73 Glucose Level 86 Calcium Level 8.8 Total Bilirubin 16.5 H Direct Bilirubin 10.90 H Indirect Bilirubin 5.6 H Aspartate Amino Transf (AST/SGOT) 444 H Alanine Aminotransferase (ALT/SGPT) 327 H Alkaline Phosphatase 159 H Ammonia 52 H Total Protein 6.0 L Albumin 2.3 L Globulin 3.70 H Albumin/Globulin Ratio 0.62 Test 08/28/16 07:51 08/28/16 11:48 Bedside Glucose 87 107 Medications Medications Current Medications Polyethylene Glycol (Miralax) 17 gm DAILY PO Last administered on 08/28/16 09: 47; Admin Dose 17 GM; Start 08/20/16 at 09:00 Tramadol HCl (Ultram) 50 mg BID PRN PO PAIN Last administered on 08/23/16 10: 43; Admin Dose 50 MG; Start 08/19/16 at 23:30 Acetaminophen (Tylenol Tab) 650 mg Q6H PRN PO PAIN AND OR ELEVATED TEMP Last administered on 08/23/16 17:15; Admin Dose 650 MG; Start 08/19/16 at 23:30 Diagnostic Test (Pha) (Accu-Chek) 1 ea 02 XX Last administered on 08/21/16 01: 56; Admin Dose 1 EA; Start 08/20/16 at 02:00 Miscellaneous Information 1 ea NOTE XX ; Start 08/20/16 at 18:00 Glucose (Glutose) 15 gm Q15M PRN PO DECREASED GLUCOSE; Start 08/20/16 at 18:00 Glucose (Glutose) 22.5 gm Q15M PRN PO DECREASED GLUCOSE; Start 08/20/16 at 18: 00 Dextrose (D50w Syringe) 25 ml Q15M PRN IV DECREASED GLUCOSE; Start 08/20/16 at 18:00 Dextrose (D50w Syringe) 50 ml Q15M PRN IV DECREASED GLUCOSE; Start 08/20/16 at 18:00 Glucagon (Glucagen) 1 mg Q15M PRN IM DECREASED GLUCOSE; Start 08/20/16 at 18:00 Glucose (Glutose) 15 gm Q15M PRN BUCCAL DECREASED GLUCOSE; Start 08/20/16 at 18 :00 Metoclopramide HCl (Reglan) 5 mg Q6 IV Last administered on 08/28/16 13:14; Admin Dose 5 MG; Start 08/22/16 at 18:50 Lorazepam (Ativan) 0.5 mg DAILY PRN PO ANXIETY Last administered on 08/25/16 22:45; Admin Dose 0.5 MG; Start 08/23/16 at 22:00 Insulin Glargine (Lantus) 15 unit DAILY@20 SC Last administered on 08/27/16 20 :30; Admin Dose 15 UNIT; Start 08/25/16 at 20:00 Zolpidem Tartrate (Ambien) 2.5 mg HS PRN PO INSOMNIA; Start 08/26/16 at 00:30 Pantoprazole (Protonix Iv) 40 mg DAILY@06 IV Last administered on 08/28/16 05: 02; Admin Dose 40 MG; Start 08/28/16 at 06:00 Potassium Chloride (Potassium Chloride Pwd/Soln) 40 meq DAILY PO Last administered on 08/28/16 09:47; Admin Dose 40 MEQ; Start 08/27/16 at 16:00 DOREEN WILSON MD Aug 28, 2016 16:53
--- NOTE | 2016-08-28 18:18 | PDOCDIS ---
Discharge Instructions CONDITION Patient Condition: Guarded HOME CARE INSTRUCTIONS: Special Diet: Clear liquid ACTIVITY: Activity Restrictions: Slowly Increase Activity FOLLOW UP/APPOINTMENTS Follow-up Plan f/u own pcp [address] baptiste 1 wk see [facility] this wk NAVI VENTURA MD Aug 28, 2016 18:18
[2016-08-28] MEDS ORDERED: RIFA550T4 PO (18:26)
[2016-08-28] MEDS ORDERED: LANT3I SC (18:26)
[2016-08-28] MEDS ORDERED: POTA10TA98 PO (18:26)
[2016-08-28] MEDS ORDERED: LACT20SO2 PO (18:26)
[2016-08-28] MEDS ORDERED: LORA-441 PO (18:26)
--- NOTE | 2016-08-28 18:36 | PN ---
Date/Time of Note Date/Time of Note DATE: 08/28/16 TIME: 18:33 Assessment/Plan VTE Prophylaxis VTE Prophylaxis Intervention: other Lines/Catheters IV Catheter Type (from Nrsg): Saline Lock Urinary Cath still in place: No Assessment/Plan Chief Complaint/Hosp Course LIVER FAILURE HX EGD ASCITES PLAN PER GI will need liver tranplant HOME OUT PT L[facility]ANS[facility] THIS WK DW DR WILSON Problems: Subjective 24 Hr Interval Summary Subjective hx not possible: other (D/W DR WILSON OK TO GO HOME OUT PT F/U AT [facility]) Exam/Review of Systems Vital Signs Vitals Vital Signs Date Time Temp Pulse Resp B/P Pulse Ox O2 Delivery O2 Flow Rate FiO2 08/28/16 14:00 98.0 98 18 135/80 96 08/25/16 20:00 2.0 Intake and Output 08/27/16 08/27/16 08/28/16 15:00 23:00 07:00 Intake Total 560 ml 100 ml Balance 560 ml 100 ml Exam Respiratory: clear to auscultation Cardiovascular: regular rate and rhythm Gastrointestinal: bowel sounds (+) Extremities: No edema Results Result Diagram: 08/27/16 0506 08/28/16 0529 Results 24 hrs Laboratory Tests Test 08/27/16 20:27 08/28/16 02:40 08/28/16 05:29 08/28/16 07:51 Bedside Glucose 292 H 102 87 Sodium Level 140 Potassium Level 3.6 Chloride Level 100 Carbon Dioxide Level 29 Anion Gap 15 Blood Urea Nitrogen 14 Creatinine 0.73 Glucose Level 86 Calcium Level 8.8 Total Bilirubin 16.5 H Direct Bilirubin 10.90 H Indirect Bilirubin 5.6 H Aspartate Amino Transf (AST/SGOT) 444 H Alanine Aminotransferase (ALT/SGPT) 327 H Alkaline Phosphatase 159 H Ammonia 52 H Total Protein 6.0 L Albumin 2.3 L Globulin 3.70 H Albumin/Globulin Ratio 0.62 Test 08/28/16 11:48 08/28/16 17:08 Bedside Glucose 107 318 H Medications Medications Current Medications Polyethylene Glycol (Miralax) 17 gm DAILY PO Last administered on 08/28/16 09: 47; Admin Dose 17 GM; Start 08/20/16 at 09:00 Tramadol HCl (Ultram) 50 mg BID PRN PO PAIN Last administered on 08/23/16 10: 43; Admin Dose 50 MG; Start 08/19/16 at 23:30 Acetaminophen (Tylenol Tab) 650 mg Q6H PRN PO PAIN AND OR ELEVATED TEMP Last administered on 08/23/16 17:15; Admin Dose 650 MG; Start 08/19/16 at 23:30 Diagnostic Test (Pha) (Accu-Chek) 1 ea 02 XX Last administered on 08/21/16 01: 56; Admin Dose 1 EA; Start 08/20/16 at 02:00 Miscellaneous Information 1 ea NOTE XX ; Start 08/20/16 at 18:00 Glucose (Glutose) 15 gm Q15M PRN PO DECREASED GLUCOSE; Start 08/20/16 at 18:00 Glucose (Glutose) 22.5 gm Q15M PRN PO DECREASED GLUCOSE; Start 08/20/16 at 18: 00 Dextrose (D50w Syringe) 25 ml Q15M PRN IV DECREASED GLUCOSE; Start 08/20/16 at 18:00 Dextrose (D50w Syringe) 50 ml Q15M PRN IV DECREASED GLUCOSE; Start 08/20/16 at 18:00 Glucagon (Glucagen) 1 mg Q15M PRN IM DECREASED GLUCOSE; Start 08/20/16 at 18:00 Glucose (Glutose) 15 gm Q15M PRN BUCCAL DECREASED GLUCOSE; Start 08/20/16 at 18 :00 Metoclopramide HCl (Reglan) 5 mg Q6 IV Last administered on 08/28/16 17:17; Admin Dose 5 MG; Start 08/22/16 at 18:50 Lorazepam (Ativan) 0.5 mg DAILY PRN PO ANXIETY Last administered on 08/25/16 22:45; Admin Dose 0.5 MG; Start 08/23/16 at 22:00 Insulin Glargine (Lantus) 15 unit DAILY@20 SC Last administered on 08/27/16 20 :30; Admin Dose 15 UNIT; Start 08/25/16 at 20:00 Zolpidem Tartrate (Ambien) 2.5 mg HS PRN PO INSOMNIA; Start 08/26/16 at 00:30 Pantoprazole (Protonix Iv) 40 mg DAILY@06 IV Last administered on 08/28/16 05: 02; Admin Dose 40 MG; Start 08/28/16 at 06:00 Potassium Chloride (Potassium Chloride Pwd/Soln) 40 meq DAILY PO Last administered on 08/28/16 09:47; Admin Dose 40 MEQ; Start 08/27/16 at 16:00 Rifaximin (Xifaxan) 550 mg BID PO ; Start 08/28/16 at 21:00 NAVI VENTURA MD Aug 28, 2016 18:36
[2016-08-28 20:00] VITALS: BP 138/80; RESP 20
[2016-08-28] MEDS: RIFAXIMIN 550 MG TAB PO SCH (20:32)
[2016-08-28] MEDS: INSULIN GLARGINE [LANtus] 3 ML PEN SC SCH (20:34)
[2016-08-29 02:00] VITALS: BP 127/83; RESP 20
[2016-08-29] MEDS: ACCU-CHEK XX SCH (02:00)
[2016-08-29] MEDS: METOCLOPRAMIDE 10 MG INJ IV SCH ×4 (05:24→17:32)
[2016-08-29] MEDS: PANTOPRAZOLE 40 MG INJ IV SCH (05:24)
[2016-08-29] MEDS: INSULIN ASPART [NOVOLOG] 3 ML PEN SC SCH ×4 (08:00→21:00)
[2016-08-29 08:42] VITALS: BP 121/67; RESP 18
[2016-08-29] MEDS ORDERED: LACTULOSE 30ML CUP PO SCH (09:30)
[2016-08-29] MEDS: POLYETHYLENE GLYCOL 17 GM PACKET PO SCH (09:31)
[2016-08-29] MEDS: RIFAXIMIN 550 MG TAB PO SCH ×2 (09:31→21:32)
[2016-08-29] MEDS: POTASSIUM CHLORIDE 20 MEQ POWDER FOR ORAL SOLN PO SCH (09:31)
[2016-08-29 11:16] LABS: ABNORMAL IP MESSAGE 1; BASOPHILS % 0.5 % (0.0-2.0); EOSINOPHILS % 0.7 % (0.0-7.0); HEMATOCRIT 34.2 % (42.0-52.0); HEMOGLOBIN 12.8 g/dl (14.0-18.0); LYMPHOCYTES # 0.5 10^3/ul (0.8-2.9); LYMPHOCYTES % 12.6 % (15.0-51.0); MEAN CORPUSCULAR HEMOGLOBIN 35.3 pg (29.0-33.0); MEAN CORPUSCULAR HGB CONC 37.4 g/dl (32.0-37.0); MEAN CORPUSCULAR VOLUME 94.2 fl (82.0-101.0); MEAN PLATELET VOLUME 11.1 fl (7.4-10.4); MONOCYTE # 0.5 10^3/ul (0.3-0.9); MONOCYTES % 11.9 % (0.0-11.0); NEUTROPHILS % 73.8 % (39.0-77.0); PLATELET COUNT 73 10^3/UL (140-415); POSITIVE DIFF @See below; RED BLOOD COUNT 3.63 10^6/ul (4.70-6.10); RED CELL DISTRIBUTION WIDTH 17.5 % (11.5-14.5)
[2016-08-29 11:30] LABS: ALBUMIN 2.7 g/dl (3.3-4.9); ALBUMIN/GLOBULIN RATIO 0.62; BILIRUBIN,DIRECT 13.3 mg/dl (0.00-0.20); BILIRUBIN,INDIRECT 5.1 mg/dl (0-1.1); BILIRUBIN,TOTAL 18.4 mg/dl (0.2-1.3); CALCIUM 9.2 mg/dl (8.4-10.2); CREATININE 0.9 mg/dl (0.61-1.24); POTASSIUM 4.3 mmol/L (3.5-5.1)
[2016-08-29 14:00] VITALS: BP 123/77; RESP 18
--- NOTE | 2016-08-29 17:38 | PN ---
Date/Time of Note Date/Time of Note DATE: 08/29/16 TIME: 17:36 Assessment/Plan VTE Prophylaxis VTE Prophylaxis Intervention: other Lines/Catheters IV Catheter Type (from Rust): Saline Lock Urinary Cath still in place: No Assessment/Plan Chief Complaint/Hosp Course LIVER FAILURE HX EGD ASCITES hepatic encephalopathy PLAN PER GI will need liver tranplant HOME OUT PT LIVER TRANSPLANT CLINIC THIS WK DW DR WILSON lactulose Problems: Subjective 24 Hr Interval Summary Subjective hx not possible: other (confused) Respiratory: no complaints Cardiovascular: no complaints Gastrointestinal: no complaints Exam/Review of Systems Vital Signs Vitals Vital Signs Date Time Temp Pulse Resp B/P Pulse Ox O2 Delivery O2 Flow Rate FiO2 08/29/16 14:00 97.6 84 18 123/77 96 08/25/16 20:00 2.0 Intake and Output 08/28/16 08/28/16 08/29/16 15:00 23:00 07:00 Intake Total 1460 ml 720 ml Output Total 240 ml 500 ml Balance 1220 ml 220 ml Exam Constitutional: other (confused) Neck: supple Respiratory: clear to auscultation Cardiovascular: regular rate and rhythm Gastrointestinal: soft Musculoskeletal: nl extremities to inspection Extremities: normal pulses Results Result Diagram: 08/29/16 1056 08/29/16 1056 Results 24 hrs Laboratory Tests Test 08/28/16 20:30 08/29/16 02:08 08/29/16 08:10 08/29/16 10:56 Bedside Glucose 266 H 121 134 White Blood Count 4.0 #L Red Blood Count 3.63 L Hemoglobin 12.8 L Hematocrit 34.2 L Mean Corpuscular Volume 94.2 Mean Corpuscular Hemoglobin 35.3 H Mean Corpuscular Hemoglobin Concent 37.4 H Red Cell Distribution Width 17.5 H Platelet Count 73 L Mean Platelet Volume 11.1 H Neutrophils % 73.8 Lymphocytes % 12.6 L Monocytes % 11.9 H Eosinophils % 0.7 Basophils % 0.5 Nucleated Red Blood Cells % 0.0 Neutrophils # 3.0 Lymphocytes # 0.5 L Monocytes # 0.5 Eosinophils # 0.0 Basophils # 0.0 Nucleated Red Blood Cells # 0.0 Sodium Level 137 Potassium Level 4.3 Chloride Level 98 Carbon Dioxide Level 27 Anion Gap 16 Blood Urea Nitrogen 16 Creatinine 0.90 Glucose Level 158 Calcium Level 9.2 Total Bilirubin 18.4 H Direct Bilirubin 13.30 H Indirect Bilirubin 5.1 H Aspartate Amino Transf (AST/SGOT) 453 H Alanine Aminotransferase (ALT/SGPT) 358 H Alkaline Phosphatase 190 H Ammonia 105 #H Total Protein 7.0 # Albumin 2.7 L Globulin 4.30 H Albumin/Globulin Ratio 0.62 Test 08/29/16 11:49 Bedside Glucose 177 Medications Medications Current Medications Polyethylene Glycol (Miralax) 17 gm DAILY PO Last administered on 08/29/16 09: 31; Admin Dose 17 GM; Start 08/20/16 at 09:00 Tramadol HCl (Ultram) 50 mg BID PRN PO PAIN Last administered on 08/23/16 10: 43; Admin Dose 50 MG; Start 08/19/16 at 23:30 Acetaminophen (Tylenol Tab) 650 mg Q6H PRN PO PAIN AND OR ELEVATED TEMP Last administered on 08/23/16 17:15; Admin Dose 650 MG; Start 08/19/16 at 23:30 Diagnostic Test (Pha) (Accu-Chek) 1 ea 02 XX Last administered on 08/21/16 01: 56; Admin Dose 1 EA; Start 08/20/16 at 02:00 Miscellaneous Information 1 ea NOTE XX ; Start 08/20/16 at 18:00 Glucose (Glutose) 15 gm Q15M PRN PO DECREASED GLUCOSE; Start 08/20/16 at 18:00 Glucose (Glutose) 22.5 gm Q15M PRN PO DECREASED GLUCOSE; Start 08/20/16 at 18: 00 Dextrose (D50w Syringe) 25 ml Q15M PRN IV DECREASED GLUCOSE; Start 08/20/16 at 18:00 Dextrose (D50w Syringe) 50 ml Q15M PRN IV DECREASED GLUCOSE; Start 08/20/16 at 18:00 Glucagon (Glucagen) 1 mg Q15M PRN IM DECREASED GLUCOSE; Start 08/20/16 at 18:00 Glucose (Glutose) 15 gm Q15M PRN BUCCAL DECREASED GLUCOSE; Start 08/20/16 at 18 :00 Metoclopramide HCl (Reglan) 5 mg Q6 IV Last administered on 08/29/16 17:32; Admin Dose 5 MG; Start 08/22/16 at 18:50 Lorazepam (Ativan) 0.5 mg DAILY PRN PO ANXIETY Last administered on 08/25/16 22:45; Admin Dose 0.5 MG; Start 08/23/16 at 22:00 Insulin Glargine (Lantus) 15 unit DAILY@20 SC Last administered on 08/28/16 20 :34; Admin Dose 15 UNIT; Start 08/25/16 at 20:00 Zolpidem Tartrate (Ambien) 2.5 mg HS PRN PO INSOMNIA; Start 08/26/16 at 00:30 Pantoprazole (Protonix Iv) 40 mg DAILY@06 IV Last administered on 08/29/16 05: 24; Admin Dose 40 MG; Start 08/28/16 at 06:00 Potassium Chloride (Potassium Chloride Pwd/Soln) 40 meq DAILY PO Last administered on 08/29/16 09:31; Admin Dose 40 MEQ; Start 08/27/16 at 16:00 Rifaximin (Xifaxan) 550 mg BID PO Last administered on 08/29/16 09:31; Admin Dose 550 MG; Start 08/28/16 at 21:00 Lactulose (Enulose) 30 gm TID PO ; Start 08/29/16 at 21:00 NAVI VENTURA MD Aug 29, 2016 17:38
--- NOTE | 2016-08-29 19:41 | CONS ---
Date/Time of Note Date/Time of Note DATE: 08/29/16 TIME: 19:40 Assessment/Plan Assessment/Plan Chief Complaint/Hosp Course 55-year-old male with a history of cirrhosis of liver admitted the hospital for abdominal pain nausea vomiting. This has been going on for last few days. Patient was unable to keep the food down. Today she was able to tolerate liquid diet. He had a CAT scan MRI done which showed nodular liver with ascites. His bilirubin is high. GI consult was called in for abdominal pain and abnormal liver function tests. Problems: Additional Assessment/Plan Additional Assessment/Plan Additional Assessment/Plan 1. Cirrhosis of liver 2. Portal hypertension 3. Decompensated cirrhosis 4. Ascites, mild 5. Abdominal pain and nausea vomiting. 6. Encephalopathy Plan Continue with PPI Alpha-fetoprotein, mildly elevated 9.6 Patient should be referred to transplant center Advance the diet Continue with diuretics and p.o. fluid restriction INR is slowly coming down Status post a paracentesis to enough liters of fluid removed Rifaximin 550 twice daily Consultation Date/Type/Reason Admit Date/Time Aug 19, 2016 at 20:29 24 HR Interval Summary Free Text/Dictation Patient is lethargic Exam/Review of Systems Vital Signs Vitals Vital Signs Date Time Temp Pulse Resp B/P Pulse Ox O2 Delivery O2 Flow Rate FiO2 08/29/16 14:00 97.6 84 18 123/77 96 08/25/16 20:00 2.0 Intake and Output 08/28/16 08/28/16 08/29/16 15:00 23:00 07:00 Intake Total 1460 ml 720 ml Output Total 240 ml 500 ml Balance 1220 ml 220 ml Exam Constitutional: alert, oriented, well developed Psych: nl mood/affect, no complaints Head: atraumatic, normocephalic Eyes: EOMI, PERRL, nl conjunctiva, nl lids, nl sclera ENMT: nl external ears & nose, nl lips & teeth, nl nasal mucosa & septum Neck: non-tender, supple Respiratory: clear to auscultation, normal air movement Cardiovascular: nl pulses, regular rate and rhythm Gastrointestinal: nl liver, spleen, non-tender, soft Musculoskeletal: nl extremities to inspection, nl gait and stance Extremities: normal pulses 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, nl mental status, nl speech, nl strength Skin: nl turgor, No rash or lesions Lymph: nl lymph nodes Results Result Diagram: 08/29/16 1056 08/29/16 1056 Results 24 hrs Laboratory Tests Test 08/28/16 20:30 08/29/16 02:08 08/29/16 08:10 08/29/16 10:56 Bedside Glucose 266 H 121 134 White Blood Count 4.0 #L Red Blood Count 3.63 L Hemoglobin 12.8 L Hematocrit 34.2 L Mean Corpuscular Volume 94.2 Mean Corpuscular Hemoglobin 35.3 H Mean Corpuscular Hemoglobin Concent 37.4 H Red Cell Distribution Width 17.5 H Platelet Count 73 L Mean Platelet Volume 11.1 H Neutrophils % 73.8 Lymphocytes % 12.6 L Monocytes % 11.9 H Eosinophils % 0.7 Basophils % 0.5 Nucleated Red Blood Cells % 0.0 Neutrophils # 3.0 Lymphocytes # 0.5 L Monocytes # 0.5 Eosinophils # 0.0 Basophils # 0.0 Nucleated Red Blood Cells # 0.0 Sodium Level 137 Potassium Level 4.3 Chloride Level 98 Carbon Dioxide Level 27 Anion Gap 16 Blood Urea Nitrogen 16 Creatinine 0.90 Glucose Level 158 Calcium Level 9.2 Total Bilirubin 18.4 H Direct Bilirubin 13.30 H Indirect Bilirubin 5.1 H Aspartate Amino Transf (AST/SGOT) 453 H Alanine Aminotransferase (ALT/SGPT) 358 H Alkaline Phosphatase 190 H Ammonia 105 #H Total Protein 7.0 # Albumin 2.7 L Globulin 4.30 H Albumin/Globulin Ratio 0.62 Test 08/29/16 11:49 08/29/16 17:27 Bedside Glucose 177 215 Medications Medications Current Medications Polyethylene Glycol (Miralax) 17 gm DAILY PO Last administered on 08/29/16 09: 31; Admin Dose 17 GM; Start 08/20/16 at 09:00 Tramadol HCl (Ultram) 50 mg BID PRN PO PAIN Last administered on 08/23/16 10: 43; Admin Dose 50 MG; Start 08/19/16 at 23:30 Acetaminophen (Tylenol Tab) 650 mg Q6H PRN PO PAIN AND OR ELEVATED TEMP Last administered on 08/23/16 17:15; Admin Dose 650 MG; Start 08/19/16 at 23:30 Diagnostic Test (Pha) (Accu-Chek) 1 ea 02 XX Last administered on 08/21/16 01: 56; Admin Dose 1 EA; Start 08/20/16 at 02:00 Miscellaneous Information 1 ea NOTE XX ; Start 08/20/16 at 18:00 Glucose (Glutose) 15 gm Q15M PRN PO DECREASED GLUCOSE; Start 08/20/16 at 18:00 Glucose (Glutose) 22.5 gm Q15M PRN PO DECREASED GLUCOSE; Start 08/20/16 at 18: 00 Dextrose (D50w Syringe) 25 ml Q15M PRN IV DECREASED GLUCOSE; Start 08/20/16 at 18:00 Dextrose (D50w Syringe) 50 ml Q15M PRN IV DECREASED GLUCOSE; Start 08/20/16 at 18:00 Glucagon (Glucagen) 1 mg Q15M PRN IM DECREASED GLUCOSE; Start 08/20/16 at 18:00 Glucose (Glutose) 15 gm Q15M PRN BUCCAL DECREASED GLUCOSE; Start 08/20/16 at 18 :00 Metoclopramide HCl (Reglan) 5 mg Q6 IV Last administered on 08/29/16 17:32; Admin Dose 5 MG; Start 08/22/16 at 18:50 Lorazepam (Ativan) 0.5 mg DAILY PRN PO ANXIETY Last administered on 08/25/16 22:45; Admin Dose 0.5 MG; Start 08/23/16 at 22:00 Insulin Glargine (Lantus) 15 unit DAILY@20 SC Last administered on 08/28/16 20 :34; Admin Dose 15 UNIT; Start 08/25/16 at 20:00 Zolpidem Tartrate (Ambien) 2.5 mg HS PRN PO INSOMNIA; Start 08/26/16 at 00:30 Pantoprazole (Protonix Iv) 40 mg DAILY@06 IV Last administered on 08/29/16 05: 24; Admin Dose 40 MG; Start 08/28/16 at 06:00 Potassium Chloride (Potassium Chloride Pwd/Soln) 40 meq DAILY PO Last administered on 08/29/16 09:31; Admin Dose 40 MEQ; Start 08/27/16 at 16:00 Rifaximin (Xifaxan) 550 mg BID PO Last administered on 08/29/16 09:31; Admin Dose 550 MG; Start 08/28/16 at 21:00 Lactulose (Enulose) 30 gm TID PO ; Start 08/29/16 at 21:00 DOREEN WILSON MD Aug 29, 2016 19:41
[2016-08-29 20:00] VITALS: BP 140/87; RESP 18
[2016-08-29] MEDS: LACTULOSE 30ML CUP PO SCH (21:32)
[2016-08-29] MEDS: INSULIN GLARGINE [LANtus] 3 ML PEN SC SCH (21:40)
[2016-08-30] MEDS: ACCU-CHEK XX SCH (02:00)
[2016-08-30 04:18] VITALS: BP 107/53; RESP 19
[2016-08-30] MEDS: PANTOPRAZOLE 40 MG INJ IV SCH (06:47)
[2016-08-30 06:50] LABS: ALBUMIN 2.9 g/dl (3.3-4.9); ALBUMIN/GLOBULIN RATIO 0.61; BILIRUBIN,DIRECT 14.4 mg/dl (0.00-0.20); BILIRUBIN,INDIRECT 5.7 mg/dl (0-1.1); BILIRUBIN,TOTAL 20.1 mg/dl (0.2-1.3); CALCIUM 9.5 mg/dl (8.4-10.2); CREATININE 0.96 mg/dl (0.61-1.24); POTASSIUM 3.9 mmol/L (3.5-5.1); TOTAL PROTEIN 7.6 g/dl (6.1-8.1)
[2016-08-30 07:40] VITALS: BP 120/68; RESP 16
[2016-08-30] MEDS: INSULIN ASPART [NOVOLOG] 3 ML PEN SC SCH ×4 (07:54→20:27)
[2016-08-30] MEDS: LACTULOSE 30ML CUP PO SCH ×3 (08:37→20:27)
[2016-08-30] MEDS: POTASSIUM CHLORIDE 20 MEQ POWDER FOR ORAL SOLN PO SCH (08:38)
[2016-08-30] MEDS: RIFAXIMIN 550 MG TAB PO SCH ×2 (08:40→20:27)
[2016-08-30] MEDS ORDERED: ZOLPIDEM 5 MG TAB PO PRN (12:00)
[2016-08-30 15:01] VITALS: BP 126/67; PULSE 81
[2016-08-30] MEDS: ACETAMINOPHEN 325 MG TAB PO PRN (15:02)
[2016-08-30 15:33] VITALS: BP 136/100; RESP 18
[2016-08-30] MEDS: traMADol 50 MG TAB PO PRN (16:10)
--- NOTE | 2016-08-30 18:05 | CONS ---
Date/Time of Note Date/Time of Note DATE: 08/30/16 TIME: 18:04 Assessment/Plan Assessment/Plan Chief Complaint/Hosp Course 55-year-old male with a history of cirrhosis of liver admitted the hospital for abdominal pain nausea vomiting. This has been going on for last few days. Patient was unable to keep the food down. Today she was able to tolerate liquid diet. He had a CAT scan MRI done which showed nodular liver with ascites. His bilirubin is high. GI consult was called in for abdominal pain and abnormal liver function tests. Problems: Additional Assessment/Plan Additional Assessment/Plan 1. Cirrhosis of liver 2. Portal hypertension 3. Decompensated cirrhosis 4. Ascites, mild 5. Abdominal pain and nausea vomiting. 6. Encephalopathy clinically looks better patient is articulating and not lethargic Plan Continue with PPI Alpha-fetoprotein, mildly elevated 9.6 Patient should be referred to transplant center Advance the diet Continue with diuretics and p.o. fluid restriction INR is slowly coming down Status post a paracentesis to enough liters of fluid removed Rifaximin 550 twice daily Patient had no esophageal or gastric varicose vein during last endoscopy which was 3 months ago. Her varicose veins as described on CT is on the abdominal wall. Consultation Date/Type/Reason Admit Date/Time Aug 19, 2016 at 20:29 24 HR Interval Summary Constitutional: improved Exam/Review of Systems Vital Signs Vitals Vital Signs Date Time Temp Pulse Resp B/P Pulse Ox O2 Delivery O2 Flow Rate FiO2 08/30/16 15:33 98.1 83 18 136/100 98 Intake and Output 08/29/16 08/29/16 08/30/16 15:00 23:00 07:00 Intake Total 620 ml 100 ml Output Total 300 ml Balance 320 ml 100 ml Exam Constitutional: alert, oriented, well developed Psych: nl mood/affect, no complaints Head: atraumatic, normocephalic Eyes: EOMI, PERRL, nl conjunctiva, nl lids, nl sclera ENMT: nl external ears & nose, nl lips & teeth, nl nasal mucosa & septum Neck: non-tender, supple Respiratory: clear to auscultation, normal air movement Cardiovascular: nl pulses, regular rate and rhythm Gastrointestinal: nl liver, spleen, non-tender, soft Musculoskeletal: nl extremities to inspection, nl gait and stance Extremities: normal pulses 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, nl mental status, nl speech, nl strength Skin: nl turgor, No rash or lesions Lymph: nl lymph nodes Results Result Diagram: 08/29/16 1056 08/30/16 0555 Results 24 hrs Laboratory Tests Test 08/29/16 21:27 08/30/16 05:55 08/30/16 07:51 08/30/16 12:04 Bedside Glucose 174 138 123 Sodium Level 142 Potassium Level 3.9 Chloride Level 100 Carbon Dioxide Level 26 Anion Gap 20 H Blood Urea Nitrogen 16 Creatinine 0.96 Glucose Level 114 # Calcium Level 9.5 Total Bilirubin 20.1 H Direct Bilirubin 14.40 H Indirect Bilirubin 5.7 H Aspartate Amino Transf (AST/SGOT) 462 H Alanine Aminotransferase (ALT/SGPT) 374 H Alkaline Phosphatase 223 H Ammonia 74 H Total Protein 7.6 Albumin 2.9 L Globulin 4.70 H Albumin/Globulin Ratio 0.61 Test 08/30/16 17:04 Bedside Glucose 166 Medications Medications Current Medications Tramadol HCl (Ultram) 50 mg BID PRN PO PAIN Last administered on 08/30/16 16: 10; Admin Dose 50 MG; Start 08/19/16 at 23:30 Acetaminophen (Tylenol Tab) 650 mg Q6H PRN PO PAIN AND OR ELEVATED TEMP Last administered on 08/30/16 15:02; Admin Dose 650 MG; Start 08/19/16 at 23:30 Diagnostic Test (Pha) (Accu-Chek) 1 ea 02 XX Last administered on 08/21/16 01: 56; Admin Dose 1 EA; Start 08/20/16 at 02:00 Miscellaneous Information 1 ea NOTE XX ; Start 08/20/16 at 18:00 Glucose (Glutose) 15 gm Q15M PRN PO DECREASED GLUCOSE; Start 08/20/16 at 18:00 Glucose (Glutose) 22.5 gm Q15M PRN PO DECREASED GLUCOSE; Start 08/20/16 at 18: 00 Dextrose (D50w Syringe) 25 ml Q15M PRN IV DECREASED GLUCOSE; Start 08/20/16 at 18:00 Dextrose (D50w Syringe) 50 ml Q15M PRN IV DECREASED GLUCOSE; Start 08/20/16 at 18:00 Glucagon (Glucagen) 1 mg Q15M PRN IM DECREASED GLUCOSE; Start 08/20/16 at 18:00 Glucose (Glutose) 15 gm Q15M PRN BUCCAL DECREASED GLUCOSE; Start 08/20/16 at 18 :00 Insulin Glargine (Lantus) 15 unit DAILY@20 SC Last administered on 08/29/16 21 :40; Admin Dose 15 UNIT; Start 08/25/16 at 20:00 Pantoprazole (Protonix Iv) 40 mg DAILY@06 IV Last administered on 08/30/16 06: 47; Admin Dose 40 MG; Start 08/28/16 at 06:00 Potassium Chloride (Potassium Chloride Pwd/Soln) 40 meq DAILY PO Last administered on 08/30/16 08:38; Admin Dose 40 MEQ; Start 08/27/16 at 16:00 Rifaximin (Xifaxan) 550 mg BID PO Last administered on 08/30/16 08:40; Admin Dose 550 MG; Start 08/28/16 at 21:00 Lactulose (Enulose) 30 gm TID PO Last administered on 08/30/16 12:09; Admin Dose 30 GM; Start 08/29/16 at 21:00 Zolpidem Tartrate (Ambien) 2.5 mg HS PRN PO INSOMNIA; Start 08/30/16 at 12:00 DORENE WILSON MD Aug 30, 2016 18:05
[2016-08-30 19:56] VITALS: BP 135/77; RESP 19
[2016-08-30] MEDS: INSULIN GLARGINE [LANtus] 3 ML PEN SC SCH (20:26)
--- NOTE | 2016-08-30 22:09 | PN ---
Date/Time of Note Date/Time of Note DATE: 08/30/16 TIME: 22:06 Assessment/Plan VTE Prophylaxis VTE Prophylaxis Intervention: other Lines/Catheters IV Catheter Type (from Nrsg): Saline Lock Urinary Cath still in place: No Assessment/Plan Chief Complaint/Hosp Course LIVER FAILURE HX EGD ASCITES hepatic encephalopathy PLAN PER GI will need liver tranplant LIVER TRANSPLANT issac;. CYNTHIA WILSON lactulose [place] [facility] Problems: Subjective 24 Hr Interval Summary Subjective hx not possible: other (mor awake alert,dw. transplant [facility] take pt) Cardiovascular: no complaints Gastrointestinal: no complaints Exam/Review of Systems Vital Signs Vitals Vital Signs Date Time Temp Pulse Resp B/P Pulse Ox O2 Delivery O2 Flow Rate FiO2 08/30/16 19:56 97.4 79 19 135/77 97 Intake and Output 08/29/16 08/29/16 08/30/16 15:00 23:00 07:00 Intake Total 620 ml 100 ml Output Total 300 ml Balance 320 ml 100 ml Exam Respiratory: clear to auscultation Cardiovascular: regular rate and rhythm Gastrointestinal: ascites (+), soft Musculoskeletal: nl extremities to inspection Extremities: normal pulses Results Result Diagram: 08/29/16 1056 08/30/16 0555 Results 24 hrs Laboratory Tests Test 08/30/16 05:55 08/30/16 07:51 08/30/16 12:04 08/30/16 17:04 Sodium Level 142 Potassium Level 3.9 Chloride Level 100 Carbon Dioxide Level 26 Anion Gap 20 H Blood Urea Nitrogen 16 Creatinine 0.96 Glucose Level 114 # Calcium Level 9.5 Total Bilirubin 20.1 H Direct Bilirubin 14.40 H Indirect Bilirubin 5.7 H Aspartate Amino Transf (AST/SGOT) 462 H Alanine Aminotransferase (ALT/SGPT) 374 H Alkaline Phosphatase 223 H Ammonia 74 H Total Protein 7.6 Albumin 2.9 L Globulin 4.70 H Albumin/Globulin Ratio 0.61 Bedside Glucose 138 123 166 Test 08/30/16 20:24 Bedside Glucose 161 Medications Medications Current Medications Tramadol HCl (Ultram) 50 mg BID PRN PO PAIN Last administered on 08/30/16 16: 10; Admin Dose 50 MG; Start 08/19/16 at 23:30 Acetaminophen (Tylenol Tab) 650 mg Q6H PRN PO PAIN AND OR ELEVATED TEMP Last administered on 08/30/16 15:02; Admin Dose 650 MG; Start 08/19/16 at 23:30 Diagnostic Test (Pha) (Accu-Chek) 1 ea 02 XX Last administered on 08/21/16 01: 56; Admin Dose 1 EA; Start 08/20/16 at 02:00 Miscellaneous Information 1 ea NOTE XX ; Start 08/20/16 at 18:00 Glucose (Glutose) 15 gm Q15M PRN PO DECREASED GLUCOSE; Start 08/20/16 at 18:00 Glucose (Glutose) 22.5 gm Q15M PRN PO DECREASED GLUCOSE; Start 08/20/16 at 18: 00 Dextrose (D50w Syringe) 25 ml Q15M PRN IV DECREASED GLUCOSE; Start 08/20/16 at 18:00 Dextrose (D50w Syringe) 50 ml Q15M PRN IV DECREASED GLUCOSE; Start 08/20/16 at 18:00 Glucagon (Glucagen) 1 mg Q15M PRN IM DECREASED GLUCOSE; Start 08/20/16 at 18:00 Glucose (Glutose) 15 gm Q15M PRN BUCCAL DECREASED GLUCOSE; Start 08/20/16 at 18 :00 Insulin Glargine (Lantus) 15 unit DAILY@20 SC Last administered on 08/30/16 20 :26; Admin Dose 15 UNIT; Start 08/25/16 at 20:00 Pantoprazole (Protonix Iv) 40 mg DAILY@06 IV Last administered on 08/30/16 06: 47; Admin Dose 40 MG; Start 08/28/16 at 06:00 Potassium Chloride (Potassium Chloride Pwd/Soln) 40 meq DAILY PO Last administered on 08/30/16 08:38; Admin Dose 40 MEQ; Start 08/27/16 at 16:00 Rifaximin (Xifaxan) 550 mg BID PO Last administered on 08/30/16 20:27; Admin Dose 550 MG; Start 08/28/16 at 21:00 Lactulose (Enulose) 30 gm TID PO Last administered on 08/30/16 20:27; Admin Dose 30 GM; Start 08/29/16 at 21:00 Zolpidem Tartrate (Ambien) 2.5 mg HS PRN PO INSOMNIA Last administered on 21:36; Admin Dose 2.5 MG; Start 08/30/16 at 12:00 NAVI VENTURA MD Aug 30, 2016 22:09
[2016-08-31] MEDS: ACCU-CHEK XX SCH (01:31)
[2016-08-31] MEDS: PANTOPRAZOLE 40 MG INJ IV SCH (05:11)
[2016-08-31 05:43] LABS: ABNORMAL IP MESSAGE 1; BASOPHILS % 0.8 % (0.0-2.0); HEMATOCRIT 31.7 % (42.0-52.0); HEMOGLOBIN 11.6 g/dl (14.0-18.0); LYMPHOCYTES # 0.9 10^3/ul (0.8-2.9); LYMPHOCYTES % 22.8 % (15.0-51.0); MEAN CORPUSCULAR HEMOGLOBIN 34.8 pg (29.0-33.0); MEAN CORPUSCULAR HGB CONC 36.6 g/dl (32.0-37.0); MEAN CORPUSCULAR VOLUME 95.2 fl (82.0-101.0); MEAN PLATELET VOLUME 11.3 fl (7.4-10.4); MONOCYTE # 0.5 10^3/ul (0.3-0.9); MONOCYTES % 12.1 % (0.0-11.0); NEUTROPHIL # 2.4 10^3/ul (1.6-7.5); PLATELET COUNT 65 10^3/UL (140-415); POSITIVE DIFF @See below; RED BLOOD COUNT 3.33 10^6/ul (4.70-6.10); WHITE BLOOD COUNT 3.8 10^3/ul (4.8-10.8)
[2016-08-31 05:57] LABS: INR 3.7; PROTIME 37.3 Sec (12.2-14.2); PT RATIO 2.9
[2016-08-31 06:11] LABS: ALBUMIN 2.4 g/dl (3.3-4.9); ALBUMIN/GLOBULIN RATIO 0.63; BILIRUBIN,DIRECT 12.9 mg/dl (0.00-0.20); BILIRUBIN,INDIRECT 5.7 mg/dl (0-1.1); BILIRUBIN,TOTAL 18.6 mg/dl (0.2-1.3); CALCIUM 8.8 mg/dl (8.4-10.2); CREATININE 0.91 mg/dl (0.61-1.24); POTASSIUM 3.6 mmol/L (3.5-5.1); TOTAL PROTEIN 6.2 g/dl (6.1-8.1)
[2016-08-31] MEDS: INSULIN ASPART [NOVOLOG] 3 ML PEN SC SCH ×3 (07:53→17:26)
[2016-08-31] MEDS: RIFAXIMIN 550 MG TAB PO SCH (08:17)
[2016-08-31] MEDS: LACTULOSE 30ML CUP PO SCH ×2 (08:17→12:04)
[2016-08-31] MEDS: POTASSIUM CHLORIDE 20 MEQ POWDER FOR ORAL SOLN PO SCH (08:18)
[2016-08-31 08:48] VITALS: BP 139/72; RESP 18
[2016-08-31 15:05] VITALS: BP 134/73; RESP 20
[2016-09-01] MEDS ORDERED: PANTOPRAZOLE (EC) 40 MG TAB PO SCH (06:00)
--- NOTE | 2016-09-01 12:14 | GILP ---
DATE OF PROCEDURE: 08/19/2016 PROCEDURE PERFORMED: Esophagogastroduodenoscopy. PREOP DIAGNOSIS: Patient presenting with history of chronic abdominal discomfort, chronic heartburn, rule out gastroesophageal reflux disease, and peptic ulcer disease. POSTOP DIAGNOSES: 1. Fundal gastritis. 2. Gastroesophageal reflux disease. 3. Small hiatal hernia. DESCRIPTION OF PROCEDURE: After informed written consent is obtained. Patient was asked to lay in the left lateral side. Intravenous anesthesia was given as noted in the nursing notes. When the patient became somnolent, Olympus video upper endoscope was introduced into the oropharynx and then into the esophagus. Esophagus showed evidence of minimal erythema above the GE junction indicating mild reflux esophagitis. Scope at this time was advanced into the stomach. Several areas of a patchy erythema noted in the stomach and this is consistent with mild gastritis, no ulcers, no neoplasm noted. Biopsy was done from the antrum, lesser curvature and the fundus to rule out H pylori infection. Biopsies of the duodenum was also done to rule out duodenitis. Endoscope at this time was withdrawn and on the way out no additional abnormalities detected and the procedure was terminated. PLAN: Recommend omeprazole 40 mg a day. Dictated By: Stevenson Samuels MD /rosalie/morris /Document#: [id number]
--- NOTE | 2016-09-03 20:50 | DS ---
Date/Time of Note Date/Time of Note DATE: 09/03/16 TIME: 20:48 Discharge Summary Admission/Discharge Info Admit Date/Time Aug 19, 2016 at 20:29 Discharge Date/Time Aug 31, 2016 at 18:20 Discharge Diagnosis Liver cirrhosis, ascitis Patient Condition: Serious Consults dr johnson and dr Ballesteros Procedures EGD ad paracentesis Hospital Course LIVER FAILURE HX EGD ASCITES hepatic encephalopathy PLAN PER GI will need liver tranplant LIVER TRANSPLANT issac;. DW DR BALLESTEROS lactulose aw[place] [facility] [place] Active Scripts Potassium Chloride (K-Tab) 10 Meq Tablet.sa, 10 MEQ PO DAILY for 28 Days, TAB.SA Prov:NAVI VENTURA MD 08/28/16 Lactulose* (Lactulose*) 20 Gm/30 Ml Solution, 20 GM PO BID for 28 Days, ML Prov:NAVI VENTURA MD 08/28/16 Insulin Glargine* (Lantus*) 100 Unit/Ml Soln, 15 UNIT SC DAILY@20 for 14 Days Prov:NAVI VENTURA MD 08/28/16 Lorazepam* (Ativan*) 0.5 Mg Tablet, 0.5 MG PO DAILY Y for ANXIETY for 7 Days, TAB Prov:NAVI VENTURA MD 08/28/16 Rifaximin* (Xifaxan*) 550 Mg Tablet, 550 MG PO BID for 30 Days, TAB Prov:NAVI VENTURA MD 08/28/16 Reported Medications Polyethylene Glycol* (Miralax*) 17 Gm Powd.pack, 17 GM PO DAILY, #30 PACKET 08/19/16 Tramadol HCl (Tramadol HCl) 50 Mg Tablet, 50 MG PO TID for PAIN, #60 TAB 08/19/16 Omeprazole* (Omeprazole*) 20 Mg Capsule., 20 MG PO DAILY, #30 CAP 08/19/16 [Gas Relief] No Conflict Check, PO DAILY for DISTENSION/GAS/BLOATING 04/27/16 Discontinued Reported Medications Meloxicam* (Meloxicam*) 7.5 Mg Tablet, 7.5 MG PO DAILY, #30 TAB 08/19/16 Ibuprofen* (Ibuprofen*) 600 Mg Tablet, 600 MG PO BID, TAB 08/19/16 Metformin Hcl* (Metformin Hcl*) 500 Mg Tablet, 500 MG PO WITH BREAKFAST, TAB 02/24/14 Gabapentin* (Gabapentin*) 600 Mg Tablet, 600 MG PO TID, TAB 02/24/14 Primary Care Provider KAREN Buckley Sep 03, 2016 20:50
== END 2016-08-31 18:20 | disposition other institution (70) | DRG 432 ==
LOC: E/R 13:48 → PP2 20:29
PROVIDERS: ADMIT Internal Medicine Nephrology; ATTEND Internal Medicine Nephrology
PROC: 0DB98ZX Excision of Duodenum, Via Natural or Artificial Opening Endoscopic, Diagnostic (ICD-10-PCS; 2016-08-19)
PROC: 0DB68ZX Excision of Stomach, Via Natural or Artificial Opening Endoscopic, Diagnostic (ICD-10-PCS; 2016-08-19)
PROC: 30233K1 Transfusion of Nonautologous Frozen Plasma into Peripheral Vein, Percutaneous Approach (ICD-10-PCS; 2016-08-24)
PROC: 0W9G3ZZ Drainage of Peritoneal Cavity, Percutaneous Approach (ICD-10-PCS; principal; 2016-08-26)
DX: K74.60 Unspecified cirrhosis of liver (principal); K72.00 Acute and subacute hepatic failure without coma; R18.8 Other ascites; K76.6 Portal hypertension; D70.9 Neutropenia, unspecified; E11.42 Type 2 diabetes mellitus with diabetic polyneuropathy; E11.9 Type 2 diabetes mellitus without complications; D64.9 Anemia, unspecified; N39.0 Urinary tract infection, site not specified; K29.70 Gastritis, unspecified, without bleeding; K44.9 Diaphragmatic hernia without obstruction or gangrene; K21.0 Gastro-esophageal reflux disease with esophagitis; R79.1 Abnormal coagulation profile; Z79.84 Long term (current) use of oral hypoglycemic drugs
CPT/HCPCS: 36430; 71010; 74177; 74181; 76705; 80048; 80053; 80061; 81001; 81003; 82105; 82140; 82150; 82945; 82962; 83036; 83615; 83690; 84157; 84484; 85025; 85610; 85730; 86704; 86709; 86803; 86850; 86900; 86901; 87040; 87070; 87086; 87102; 87116; 87340; 88104; 88305; 89051; 93005; 96374; 96375; C9113; J0696; J1815; J2270; J2405; J2765; J7030; J7042; P9059; Q9967